=== PATIENT | male | born 1970 | race Caucasian/White ===

== ENCOUNTER 2017-04-09 10:06 | Inpatient (IN) ==
[2017-04-09] MEDS ORDERED: Thiamine (B-1) 100 MG, Folic Acid 1 MG, MVI, adult with vitamin K 10 ML in 0.9 % Sodi... IVPB ONE (10:32)
[2017-04-09] MEDS ORDERED: 0.9 % Sodium Chloride 1,000 ML IVC ONE ×2 (10:33→16:13)
[2017-04-09 11:03] LABS: Basophils # 0.1 K/mcL (0.0-0.2); Basophils % 0.4 %; Eosinophils % 0.1 %; Hematocrit 38.8 % (37.5-50.1); Hemoglobin 11.5 g/dL (12.9-16.9); Immature Granulocytes % 0.4 % (0-4); Lymphocytes # 1.1 K/mcL (0.6-4.6); Lymphocytes % 7.7 %; Mean Corpuscular HGB Conc 29.6 g/dL (31.6-35.5); Mean Corpuscular Hemoglobin 20.2 pg (28.0-33.3); Mean Corpuscular Volume 68.2 fL (83.0-100.0); Mean Platelet Volume 9.4 fL (9.4-12.4); Monocytes # 0.9 K/mcL (0.0-1.3); Monocytes % 6.3 %; Neutrophils # 11.7 K/mcL (1.6-8.9); Platelet Count 319 K/mcL (140-400); Red Blood Count 5.69 M/mcL (4.19-5.50); Red Cell Distribution Width 23.6 % (11.5-14.5); Segmented Neutrophils % 85.1 %
[2017-04-09 11:11] LABS: INR 1.1; Prothrombin Time 11.7 Seconds (9.4-12.1)
[2017-04-09 11:19] LABS: Toxic Granulation Present (Not Present)
[2017-04-09 11:20] LABS: Alanine Aminotransferase 15 Units/L (0-55); Albumin 3.6 g/dL (3.5-5.0); Albumin/Globulin Ratio 0.7 (1.1-2.2); Alkaline Phosphatase 98 Units/L (38-126); Anisocytosis 1+ (Not Present); Aspartate Amino Transferase 24 Units/L (5-34); BUN/Creatinine Ratio 4 (6-26); Bilirubin,Total 0.4 mg/dL (0.2-1.2); Carbon Dioxide 16 mEq/L (19-29); Chloride 96 mEq/L (98-109); Ethanol 73 mg/dL (0-10); Globulin 5.1 g/dL (2.4-3.5); Glucose 125 mg/dL (70-99); Lipase 41 Units/L (8-78); Magnesium 1.6 mg/dL (1.6-2.6); Microcytosis Present (Not Present); Osmolality,Calculated 276 (280-300); Platelet Estimate Normal (Normal); Potassium 3.3 mEq/L (3.5-4.5); Sodium 134 mEq/L (136-145); Total Protein 8.7 g/dL (6.0-8.3); eGFR For African Americans > 60 (> 60); eGFR For Non-African Americans > 60 (> 60)
[2017-04-09 11:27] LABS: Blood Urea Nitrogen 3 mg/dL (8-26)
--- NOTE | 2017-04-09 11:30 | Emergency Department Note ---
Disposition Clinical Impression: Urinary retention, Chronic alcohol abuse, Cavitary lesion of lung, Dehydration , Tachycardia Pneumonia Qualifiers: Pneumonia type: due to unspecified organism Laterality: right Lung location: upper lobe of lung Qualified Code(s): J18.1 - Lobar pneumonia, unspecified organism Diarrhea Qualifiers: Diarrhea type: unspecified type Qualified Code(s): R19.7 - Diarrhea, unspecified Syncope Qualifiers: Syncope type: unspecified Qualified Code(s): R55 - Syncope and collapse Disposition: Admitted As Inpatient Condition: Fair Time of Disposition: 15:43 General Adult HPI - General Chief complaint: ED Urogenital-Male Stated complaint: DIFFICULTY URINATING Dizziness Time Seen by Provider: 04/09/17 10:10 Source: patient, EMS Mode of arrival: EMS Limitations: no limitations Nursing Notes Reviewed: Yes Vital Signs Reviewed: Yes - History of Present Illness HPI Narrative: 46-year-old male who is a chronic alcoholic comes to the ED complaining that he is unable to urinate. He said he also had one episode where he passed out when he was trying to urinate. So did not hit his head. Patient states he drinks 3- 6 tall boy beers every day. He stated he last drank last night. He states that he did fall while he is tried to urinate. He has never had this urinating problem before. He said he fell backwards but did not his head he states he thinks he lost consciousness before he fell and woke up on the ground. Patient is an unreliable historian at this time due to there is a good chance he still has alcohol on board. Patient otherwise is only having pain in the thoracolumbar region of his spine. He says he is unable to urinate and is able to pass gas and having bowel movements. He said this difficulty in urinating started this morning. He fell while trying to urinate so the fall occurred after the trouble with urination. Patient otherwise is having no complaints including headache, blurry vision, neck pain, chest pain, shortness of breath, abdominal pain, pain or tingling in any arms or legs or any generalized numbness , change in gait, fevers, nausea or vomiting. Pain Scale: 8 - Related Data Home Medications Medication Instructions Recorded Confirmed Benztropine [Cogentin] 1 mg PO HS 01/22/17 04/09/17 Gabapentin [Neurontin] 600 mg PO QID 01/22/17 04/09/17 Lurasidone HCl [Latuda] 120 mg PO DAILY 01/22/17 04/09/17 Trazodone HCl 350 mg PO HS 01/22/17 04/09/17 Venlafaxine XR (24 HR) [Effexor Xr] 150 mg PO DAILY 01/22/17 04/09/17 risperiDONE [Risperdal] 2 mg PO BID 01/22/17 04/09/17 Cholecalciferol (D-3) [Vitamin D] 2,000 unit PO DAILY 04/09/17 04/09/17 Iron Polysaccharide Complex [Pro 180 mg PO BID 04/09/17 04/09/17 Fe] Allergies Allergy/AdvReac Type Severity Reaction Status Date / Time propoxyphene Allergy Rash Verified 01/22/17 10:38 [From Anai] Review of Systems: 10 point review of systems done and negative unless otherwise stated in history of present illness. All systems ED: reviewed and negative except as stated. Review of Systems: As Per [facility] Past Medical History - Past Medical History Attestation: Yes The following information was validated with the patient. Medical history: Reports: hypertension, other Surgical history: Reports: other Psychiatric history: Reports: bipolar, depression, schizophrenia - Social History Smoking Status: Current every day smoker Smokeless Tobacco Status: No Alcohol use: Reports: occasionally Drug use: Reports: none, marijuana, methamphetamine Physical Exam - General Limitations: no limitations General appearance: alert, anxious - Head Head exam: atraumatic, normocephalic, normal inspection - Eye Eye exam: Present: normal appearance, PERRL, EOMI - ENT ENT exam: normal exam, normal oropharynx, mucous membranes moist - Neck Neck exam: Present: normal inspection, full ROM, trachea midline. Absent: tenderness - Chest Chest inspection: Present: normal inspection, symmetric chest wall rise. Absent : tenderness - Respiratory Respiratory exam: Present: normal lung sounds bilaterally. Absent: respiratory distress, wheezes, accessory muscle use - Cardiovascular Cardiovascular exam: Present: regular rate, normal rhythm, normal heart sounds - Abdominal Exam Abdominal exam: Present: soft, Non-Tender. Absent: tenderness, distention, guarding, rebound, rigidity - Extremities Exam Extremities exam: Present: normal inspection, full ROM. Absent: tenderness, pedal edema - Expanded Lower Extremity Exam Neurovascular/Tendon exam: Present: normal capillary refill. Absent: pulse deficit, motor deficit, sensory deficit, tendon deficit - Back Exam Back exam: Present: normal inspection, full ROM, tenderness (Midline tenderness from T10-L2. No signs of bruising there is paraspinal muscle tenderness as well in that region.), paraspinal tenderness. Absent: CVA tenderness (R), CVA tenderness (L) - Neurological Exam Neurological exam: Present: alert, oriented X3, CN II-XII intact, normal gait. Absent: motor sensory deficit - Expanded Neurological Exam Patient oriented to: Present: person, place, time Speech: Present: fluid speech Cranial nerves: EOM function (II, III, IV, ): Normal, facial sensation (V): Normal, facial palsy (VII): Normal, spinal accessory function (XI): Normal, tongue deviation (XII): Normal Cerebellar function: finger to nose: Normal, heel to agarwal: Normal Cerebellar function: normal gait Motor strength - LUE: 5/5 Motor strength - RUE: 5/5 Motor strength - LLE: 5/5 Motor strength - RLE: 5/5 Upper motor neuron exam: alvarez neglect: Absent bilaterally, pronator drift: Absent bilaterally Sensory exam upper extremity: light touch: Normal Sensory exam lower extremity: light touch: Normal Coma Scale Eye Opening: Spontaneous Coma Scale Motor Response: Obeys Commands Coma Scale Verbal Response: Oriented Coma Scale Total: 15 - Skin Skin exam: Present: warm, dry, intact, normal color Course Course Narrative: 46-year-old male who is a chronic alcoholic presents the ED with difficulty with urination. Patient did try to urinate for us she was unable to use will place a catheter in him and drain it. To see if we can get any urine out we will Also get a urinalysis. Due to the fall we will get an EKG as well as basic labs including CMP, EtOH, urine drug screen, mag, hepatic panel, lipase as well as coags. We will also get CT of his head neck place him in a c-collar as well as thoracic and lumbar spine. We will see a chest x-ray. - Reevaluation(s) Reevaluation #1: Patient reevaluated CT of head and neck came back not showing any acute fractures were head bleedings did take the c-collar off and he has no cervical neck tenderness. CT did show possible cavitary lesion patient will get CT of chest with contrast for possible neoplasm. Patient notified of this. He did have a Hyatt placed which was able to drain the urine. Patient is still having the diarrhea. Otherwise he is having no complaints at this time. Will place patient on droplet precautions due to possible tuberculosis. Time: 12:27 Vital Signs Temperature 98 F 04/09/17 10:16 Pulse Rate 143 04/09/17 10:16 Respiratory Rate 20 04/09/17 10:16 Blood Pressure 144/71 04/09/17 10:16 O2 Sat by Pulse Oximetry 95 04/09/17 10:16 Temperature 98.4 F 04/09/17 18:55 Pulse Rate 108 04/09/17 17:03 Respiratory Rate 20 04/09/17 18:55 Blood Pressure 143/76 04/09/17 18:55 O2 Sat by Pulse Oximetry 98 04/09/17 17:03 Oxygen Delivery Oxygen Delivery Room Air Medical Decision Making - MDM Narrative Medical decision making narrative: 46-year-old male presents to the ED complaining of urinary retention and generalized weakness. Patient has never had this issue of urinary retention before. He said he did not pass out. Due to being a chronic alcoholic and possibly still altered with alcohol the did get a CT of his head and neck due to the fall and placed him in c-collar. This came back negative and the c- collar was taken off as he had no cervical tenderness. He also is having thoracolumbar pain so we got a CT of both those and there was incidental finding of possible cavitary lesion in the thoracic cavity so CT of chest with contrast was ordered as it was recommended by radiology. Results of this have not came back most likely patient has to be admitted for further evaluation of this cavitary lesion. We also placed a Hyatt catheter in him due to urinary retention he had 500 mL of urine voided. Patient has never had this issue before. He has had chronic diarrhea and is still in having it while here. We did give him a banana bag as well as IV fluid which did help him feel better. 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 Spoke with the hospitalist Dr. Oconnell who agreed to admit the patient to their service for further evaluation. Patient is admitted stable condition. Cervical Spine CT 04/09/17 10:28 IMPRESSION: 1. Limited exam due to patient motion. Within that limitation, there is no acute fracture of the cervical spine evident. 2. Indeterminate mixed solid and cavitary lesion within the right upper lobe, incompletely imaged. A CT of the chest with contrast is recommended for further evaluation of this finding is a neoplastic process could have this appearance. D/ / Thom Bermudez MD / Thom Bermudez MD Interpreting Provider: Thom Bermudez MD Chest X-Ray 04/09/17 10:28 IMPRESSION: Negative chest. D/ / Sadaf Vizcarra MD / Sadaf Vizcarra MD Interpreting Provider: Sadaf Vizcarra MD Head CT 04/09/17 10:28 IMPRESSION: 1. No acute intracranial abnormality 2. Mild diffuse atrophic changes D/ / Jameson Canela MD / Jameson Canela MD Interpreting Provider: Jameson Canela MD Lumbar Spine CT 04/09/17 10:31 IMPRESSION: No evidence for acute fracture or malalignment of the thoracolumbar spine. Ill-defined right apical lung nodule with internal calcification, however there is a significant soft tissue component. Comparison with previous studies, if available, would be helpful. Otherwise CT of the chest is recommended for further evaluation which can be performed on a nonemergent/outpatient basis. D/ / Joni Ghosh MD / Joni Ghosh MD Interpreting Provider: Joni Ghosh MD Thoracic Spine CT 04/09/17 10:31 IMPRESSION: No evidence for acute fracture or malalignment of the thoracolumbar spine. Ill-defined right apical lung nodule with internal calcification, however there is a significant soft tissue component. Comparison with previous studies, if available, would be helpful. Otherwise CT of the chest is recommended for further evaluation which can be performed on a nonemergent/outpatient basis. D/ / Joni Ghosh MD / Joni Ghosh MD Interpreting Provider: Joni Ghosh MD Chest CT 04/09/17 12:25 IMPRESSION: The process of the right upper lobe may be due to an infectious process including histoplasmosis, malignancy, or less likely both processes adjacent to each other. An infectious process would be favored but close follow-up is needed to exclude malignancy. Recommend pulmonology consultation. This could be further evaluated with a short-term follow-up CT of the chest, PET-CT, or biopsy. D/ / Lamont Cortez MD / Lamont Cortez MD Interpreting Provider: Lamont Cortez MD - Medical Records Medical records reviewed: Yes I reviewed the patient's medical records. - Lab Data Lab results reviewed: Yes I reviewed the patient's lab results. Result diagrams: 04/09/17 10:20 04/09/17 10:20 Lab Results 04/09/17 04/09/17 04/09/17 Range/Units 10:20 10:20 10:20 WBC 13.7 H (4.3-11.1) K/mcL RBC 5.69 H (4.19-5.50) M/mcL Hgb 11.5 L (12.9-16.9) g/dL Hct 38.8 (37.5-50.1) % MCV 68.2 L (83.0-100.0) fL MCH 20.2 L (28.0-33.3) pg MCHC 29.6 L (31.6-35.5) g/dL RDW 23.6 H (11.5-14.5) % Plt Count 319 (140-400) K/mcL MPV 9.4 (9.4-12.4) fL Immature Gran % 0.4 (0-4) % Seg Neutrophils % 85.1 % Lymphocytes % 7.7 % Monocytes % 6.3 % Eosinophils % 0.1 % Basophils % 0.4 % Neutrophils # 11.7 H (1.6-8.9) K/mcL Lymphocytes # 1.1 (0.6-4.6) K/mcL Monocytes # 0.9 (0.0-1.3) K/mcL Eosinophils # 0.0 (0.0-0.6) K/mcL Basophils # 0.1 (0.0-0.2) K/mcL Toxic Granulation Present A (Not Present) Platelet Estimate Normal (Normal) Anisocytosis 1+ A (Not Present) Microcytosis Present A (Not Present) PT 11.7 (9.4-12.1) Seconds INR 1.1 APTT 26.0 (26.0-36.0) Seconds Sodium 134 L (136-145) mEq/L Potassium 3.3 L (3.5-4.5) mEq/L Chloride 96 L (98-109) mEq/L Carbon Dioxide 16 L (19-29) mEq/L BUN 3 L (8-26) mg/dL Creatinine 0.82 (0.72-1.25) mg/dL Est GFR ( Amer) > 60 (> 60) Est GFR (Non-Af Amer) > 60 (> 60) BUN/Creatinine Ratio 4 L (6-26) Glucose 125 H (70-99) mg/dL Calculated Osmolality 276 L (280-300) Lactic Acid (0.5-2.2) mmol/L Calcium 9.0 (8.6-10.8) mg/dL Magnesium 1.6 (1.6-2.6) mg/dL Total Bilirubin 0.4 (0.2-1.2) mg/dL AST 24 (5-34) Units/L ALT 15 (0-55) Units/L Alkaline Phosphatase 98 (38-126) Units/L Creatine Kinase 388 H (30-200) Units/L Serum Total Protein 8.7 H (6.0-8.3) g/dL Albumin 3.6 (3.5-5.0) g/dL Globulin 5.1 H (2.4-3.5) g/dL Albumin/Globulin Ratio 0.7 L (1.1-2.2) Lipase 41 (8-78) Units/L TSH (0.350-4.840) mcIU/mL Urine Color (Yellow) Urine Clarity (Clear) Urine pH (5.0-8.0) pH Units Ur Specific [place] (1.010-1.025) Urine Protein (Neg-Trace) mg/dL Urine Glucose (UA) (Normal) mg/dL Urine Ketones (Negative) mg/dL Urine Blood (Negative) Urine Nitrite (Negative) Urine Bilirubin (Negative) Urine Urobilinogen (Normal) mg/dL Ur Leukocyte Esterase (Negative) Hyaline Casts Ur Culture Indicated? (NO) Urine Opiates Screen (Jsurnu=105) ng/mL Ur Barbiturates Screen (Drtfga=755) ng/mL Ur Phencyclidine Scrn (Cutoff=25) ng/mL Ur Amphetamines Screen (Dqxgmr=7213) ng/mL U Benzodiazepines Scrn (Axmfxj=852) ng/mL Urine Cocaine Screen (Cutoff= 300) ng/mL U Marijuana (THC) Screen (Cutoff = 50) ng/mL Ethyl Alcohol 73 H (0-10) mg/dL HIV Ag/Ab Combo Qual (Nonreactive) 04/09/17 04/09/17 04/09/17 Range/Units 11:34 11:34 16:50 WBC (4.3-11.1) K/mcL RBC (4.19-5.50) M/mcL Hgb (12.9-16.9) g/dL Hct (37.5-50.1) % MCV (83.0-100.0) fL MCH (28.0-33.3) pg MCHC (31.6-35.5) g/dL RDW (11.5-14.5) % Plt Count (140-400) K/mcL MPV (9.4-12.4) fL Immature Gran % (0-4) % Seg Neutrophils % % Lymphocytes % % Monocytes % % Eosinophils % % Basophils % % Neutrophils # (1.6-8.9) K/mcL Lymphocytes # (0.6-4.6) K/mcL Monocytes # (0.0-1.3) K/mcL Eosinophils # (0.0-0.6) K/mcL Basophils # (0.0-0.2) K/mcL Toxic Granulation (Not Present) Platelet Estimate (Normal) Anisocytosis (Not Present) Microcytosis (Not Present) PT (9.4-12.1) Seconds INR APTT (26.0-36.0) Seconds Sodium (136-145) mEq/L Potassium (3.5-4.5) mEq/L Chloride (98-109) mEq/L Carbon Dioxide (19-29) mEq/L BUN (8-26) mg/dL Creatinine (0.72-1.25) mg/dL Est GFR ( Amer) (> 60) Est GFR (Non-Af Amer) (> 60) BUN/Creatinine Ratio (6-26) Glucose (70-99) mg/dL Calculated Osmolality (280-300) Lactic Acid 5.3 H* (0.5-2.2) mmol/L Calcium (8.6-10.8) mg/dL Magnesium (1.6-2.6) mg/dL Total Bilirubin (0.2-1.2) mg/dL AST (5-34) Units/L ALT (0-55) Units/L Alkaline Phosphatase (38-126) Units/L Creatine Kinase (30-200) Units/L Serum Total Protein (6.0-8.3) g/dL Albumin (3.5-5.0) g/dL Globulin (2.4-3.5) g/dL Albumin/Globulin Ratio (1.1-2.2) Lipase (8-78) Units/L TSH (0.350-4.840) mcIU/mL Urine Color Yellow (Yellow) Urine Clarity Clear (Clear) Urine pH 6.0 (5.0-8.0) pH Units Ur Specific [place] 1.013 (1.010-1.025) Urine Protein Negative (Neg-Trace) mg/dL Urine Glucose (UA) Normal (Normal) mg/dL Urine Ketones Negative (Negative) mg/dL Urine Blood Negative (Negative) Urine Nitrite Negative (Negative) Urine Bilirubin Negative (Negative) Urine Urobilinogen Normal (Normal) mg/dL Ur Leukocyte Esterase Negative (Negative) Hyaline Casts GUEST RELATIONS AGENT Ur Culture Indicated? NO (NO) Urine Opiates Screen Negative (Wjvqsx=196) ng/mL Ur Barbiturates Screen Negative (Rreqyq=283) ng/mL Ur Phencyclidine Scrn Negative (Cutoff=25) ng/mL Ur Amphetamines Screen Negative (Dveihe=7470) ng/mL U Benzodiazepines Scrn Negative (Ocfmau=893) ng/mL Urine Cocaine Screen Negative (Cutoff= 300) ng/mL U Marijuana (THC) Screen Positive H (Cutoff = 50) ng/mL Ethyl Alcohol (0-10) mg/dL HIV Ag/Ab Combo Qual (Nonreactive) 04/09/17 04/09/17 Range/Units 16:50 16:50 WBC (4.3-11.1) K/mcL RBC (4.19-5.50) M/mcL Hgb (12.9-16.9) g/dL Hct (37.5-50.1) % MCV (83.0-100.0) fL MCH (28.0-33.3) pg MCHC (31.6-35.5) g/dL RDW (11.5-14.5) % Plt Count (140-400) K/mcL MPV (9.4-12.4) fL Immature Gran % (0-4) % Seg Neutrophils % % Lymphocytes % % Monocytes % % Eosinophils % % Basophils % % Neutrophils # (1.6-8.9) K/mcL Lymphocytes # (0.6-4.6) K/mcL Monocytes # (0.0-1.3) K/mcL Eosinophils # (0.0-0.6) K/mcL Basophils # (0.0-0.2) K/mcL Toxic Granulation (Not Present) Platelet Estimate (Normal) Anisocytosis (Not Present) Microcytosis (Not Present) PT (9.4-12.1) Seconds INR APTT (26.0-36.0) Seconds Sodium (136-145) mEq/L Potassium (3.5-4.5) mEq/L Chloride (98-109) mEq/L Carbon Dioxide (19-29) mEq/L BUN (8-26) mg/dL Creatinine (0.72-1.25) mg/dL Est GFR ( Amer) (> 60) Est GFR (Non-Af Amer) (> 60) BUN/Creatinine Ratio (6-26) Glucose (70-99) mg/dL Calculated Osmolality (280-300) Lactic Acid (0.5-2.2) mmol/L Calcium (8.6-10.8) mg/dL Magnesium (1.6-2.6) mg/dL Total Bilirubin (0.2-1.2) mg/dL AST (5-34) Units/L ALT (0-55) Units/L Alkaline Phosphatase (38-126) Units/L Creatine Kinase (30-200) Units/L Serum Total Protein (6.0-8.3) g/dL Albumin (3.5-5.0) g/dL Globulin (2.4-3.5) g/dL Albumin/Globulin Ratio (1.1-2.2) Lipase (8-78) Units/L TSH 1.475 (0.350-4.840) mcIU/mL Urine Color (Yellow) Urine Clarity (Clear) Urine pH (5.0-8.0) pH Units Ur Specific [place] (1.010-1.025) Urine Protein (Neg-Trace) mg/dL Urine Glucose (UA) (Normal) mg/dL Urine Ketones (Negative) mg/dL Urine Blood (Negative) Urine Nitrite (Negative) Urine Bilirubin (Negative) Urine Urobilinogen (Normal) mg/dL Ur Leukocyte Esterase (Negative) Hyaline Casts Ur Culture Indicated? (NO) Urine Opiates Screen (Oxfphn=956) ng/mL Ur Barbiturates Screen (Sytspj=477) ng/mL Ur Phencyclidine Scrn (Cutoff=25) ng/mL Ur Amphetamines Screen (Erpkvj=7078) ng/mL U Benzodiazepines Scrn (Mukcqm=323) ng/mL Urine Cocaine Screen (Cutoff= 300) ng/mL U Marijuana (THC) Screen (Cutoff = 50) ng/mL Ethyl Alcohol (0-10) mg/dL HIV Ag/Ab Combo Qual Nonreactive (Nonreactive) - Radiology Data Radiology results reviewed: Yes I reviewed the patient's radiology results. - EKG Data EKG #1 EKG attestation: Yes I reviewed and interpreted this EKG. EKG results narrative: EKG done at 1044 reviewed myself and the attending shows sinus tachycardia at a rate of 134, MA interval 143, QRS 77, QTC 403 with a normal axis. No signs of any ST elevation, T-wave abnormalities, heart strain or hypertrophy, heart block , WPW/Brugada syndrome. This EKG is unchanged when compared with old EKG done . Attestation Statement - Attestation Attestation: I examined this patient and my medical decision-making was reviewed with the Resident Physician, Dr. Corley. I agree with the documented findings, disposition and treatment plan as described except to the extent set forth below. Patient is a 46-year-old white male with a history of chronic alcohol abuse who presents to the emergency Department today with complaints of suprapubic pain and urinary retention and is quite tachycardic on arrival and appears uncomfortable. Patient reports that in attempts to try to urinate at home he had a syncopal episode. Patient denies any injury related to this incident. Patient denies any chest pain or palpitations headache or any symptoms preceding the syncope outside of the urinary symptoms. Patient's denying any symptoms at this time besides the urinary problems. Patient was placed on a media monitor continuous pulse ox IV saline well-established EKG was obtained and labs were drawn and sent and a Hyatt catheter was placed and which the patient had approximately 200 mL of urine out indicating some retention. Patient with significant relief following Hyatt catheter placement. I agree patient's physical exam findings as documented. He should with a sinus tachycardia on arrival but stable blood pressure. Patient received IV fluid boluses as well as a banana bag on arrival. Both plain film and CT imaging was negative for any acute abnormality or injury. Chest x-ray was unremarkable. It was noted on the CT cervical spine that there was visualization of the upper lobe cavitary lesion in the lung that was recommended we get further evaluation on. This was not seen on the regular chest x-ray. Due to this we pretreated the patient with Benadryl and sent him for CT of the chest with contrast. The CT showed a cavitary lesion pneumonia versus malignancy versus TB or histoplasmosis. We are still waiting for the patient's lactate at this time but will initiate IV antibiotics for the pneumonia. Patient's heart rate has improved significantly with IV fluids in the banana bag. We went ahead and discussed the case with the hospitalist who agreed with admission and ongoing management of his cavitary lesion. Patient has a Hyatt in place for his urinary retention urinalysis was unremarkable for any infection.
[2017-04-09 11:48] LABS: Bilirubin,Urine Negative (Negative); Blood,Urine Negative (Negative); Color,Urine Yellow (Yellow); Glucose,Urine (UA) Normal (Normal); Ketones,Urine Negative (Negative); Leukocyte Esterase,Urine Negative (Negative); Nitrite,Urine Negative (Negative); Protein,Urine Negative (Neg-Trace); Specific Gravity,Urine 1.013 (1.010-1.025); Urobilinogen,Urine Normal (Normal)
[2017-04-09 11:51] LABS: Amphetamine Screen,Urine Negative ng/mL (Cutoff=1000); Barbiturate Screen,Urine Negative ng/mL (Cutoff=200); Benzodiazepines Screen,Urine Negative ng/mL (Cutoff=200); Cannabinoid Screen,Urine Positive ng/mL (Cutoff = 50); Cocaine Screen,Urine Negative ng/mL (Cutoff= 300); Opiate Screen,Urine Negative ng/mL (Cutoff=300); Phencyclidine Screen,Urine Negative ng/mL (Cutoff=25)
[2017-04-09 11:58] LABS: Clarity,Urine Clear (Clear)
[2017-04-09 13:07] LABS: Creatine Kinase 388 Units/L (30-200)
[2017-04-09] MEDS ORDERED: Naloxone 0.4 MG/ML INJ IVP PRN (16:09)
--- NOTE | 2017-04-09 17:05 | Internal Med History&Physical ---
Date of Encounter: 04/10/17 Time of Encounter: 16:00 Assessment and Plan (1) Cavitary lesion of lung Current visit: Yes Status: Acute Etiology is unclear. Possibly infectious as he has a white count and tachycardia. Will c/s pulmonary. will check sputum AFP x3. Will send for Qunatiferon gold. check for histoplasmosis. check HIV (2) Pneumonia Current visit: Yes Status: Acute Will check blood cultures. check lactic acid. Check sputum culture. Need to rule out TB as above. Not sure what his risk factors are for now other than alcoholism. urine strep/legionella. start vanco/zosyn. continue with IVF. Bolus 1 L NS now. He is status post 1 L in ED Qualifiers: Pneumonia type: due to unspecified organism Laterality: right Lung location: upper lobe of lung Qualified Code(s): J18.1 - Lobar pneumonia, unspecified organism (3) Syncope and collapse Current visit: Yes Status: Acute Sounds to be vasovagal. Patient is not best historian currently as he seems to still be intoxicated. CT head negative. Will order echo. keep on tele. check TSH. (4) Urinary retention Current visit: Yes Status: Acute Hyatt has been placed. Not sure exact etiology but he is taking cogentin from what is listed in EMR which can cause this. Urine seems to be clean. Will remove Hyatt in am and do voiding trials. If still unable to urinate, will check a CT pelvis and may start flomax. Possibly will need urology evaluation. (5) Chronic alcohol abuse Current visit: Yes Status: Acute Started banana bag. Will add CIWA protocol. (6) DVT prophylaxis Current visit: Yes Status: Acute heparin SQ (7) Diarrhea Current visit: Yes Status: Acute check stools for C. Diff, check for ova/parasites. Qualifiers: Diarrhea type: unspecified type Qualified Code(s): R19.7 - Diarrhea, unspecified Internal Medicine - H&P: HPI Chief complaint: urinary retention Admitted From: Home Plans for Post Hospital Care: at Home History of present illness: Mr. Guzman is a 46 year old male who has a history of alcohol abuse as well as psychiatric disorders who presented initially to the hospital intoxicated state and was complaining of urinary retention. Please note that the history was obtained mostly from the medical records and talking to the nursing staff as well as the ED staff as the patient is in somewhat of an intoxicated state and is not the best historian at the moment. The patient initially presented with complaints of passing out while trying to urinate when he was not able to. He presented to the emergency department in a mostly altered state and he underwent this workup that included basic laboratory workup as well as multiple scans looking for trauma. He had a CT abdomen was negative. Also underwent multiple CT's cervical spine as well as thoracic and lumbar spine which were negative, however an incidental finding of a right upper lung field mass versus cavitary lesion was found for which a CT of the chest was done. There is also calcification and some hilar lymphadenopathy noted as well. The patient as far as I know has not had any fever chills nausea vomiting chest pain shortness of breath abdominal pain or neurological symptoms. His main concern was urinary symptoms. He has been having loose stools over the last few days I am not exactly sure how long he has been having those however he had signs of swelling his pants while he was in the room with him. His work up in the ED also showed elevated white count and metabolic acidosis. He had somewhat of an elevated creatine kinase and hypokalemia. The patient is being admitted to the hospitalist service for pneumonia and ruling out TB as he does have a cavitary lesion on his lung images. Past Med Surg Social Fam HX - Past Medical History Medical history: other (alcohol abuse) Psychiatric history: bipolar, depression, schizophrenia - Past Surgical History Surgical History: other - Social History Smoking Status: Current every day smoker Smokeless Tobacco Status: No Alcohol use: heavy Drug use: none, marijuana, methamphetamine - Family History Father Living Status: Still Living Mother Living Status: Still Living Internal Medicine - H&P: Meds Benztropine [Cogentin] 1 mg PO HS 01/22/17 [History] Gabapentin [Neurontin] 600 mg PO QID 01/22/17 [History] Lurasidone HCl [Latuda] 120 mg PO DAILY 01/22/17 [History] Trazodone HCl 350 mg PO HS 01/22/17 [History] Venlafaxine XR (24 HR) [Effexor Xr] 150 mg PO DAILY 01/22/17 [History] risperiDONE [Risperdal] 2 mg PO BID 01/22/17 [History] Cholecalciferol (D-3) [Vitamin D] 2,000 unit PO DAILY 04/09/17 [History] Iron Polysaccharide Complex [Pro Fe] 180 mg PO BID 04/09/17 [History] 3 Allergy/AdvReac Type Severity Reaction Status Date / Time propoxyphene Allergy Rash Verified 01/22/17 10:38 [From Eliot-N] All Systems PM: A 10-system review of systems was performed and is negative for pertinent findings except as documented above in the HPI. Review of systems: All systems reviewed are negative except as mentioned in history of present illness - Constitutional Vitals: Temp Pulse Resp BP Pulse Ox 98 F 128 20 151/76 99 04/09/17 10:16 04/09/17 14:18 04/09/17 14:18 04/09/17 14:18 04/09/17 14:18 Exam: GEN: NAD, lethargic HEENT: AT, NC, No cyanosis, oral mucosa is moist, No JVD Lymphatics: No lymphadenoapthy Eyes: Extrocular muscles intact, anicteric CVS:RRR. S1, S2, No m/r/g RESP: CTAB ABD: Soft, NT, ND, +BS EXT: No edema, No rashes, 2+ DP. multiple Tattoos noted NEURO: Incoherent. Nonfocal, CN II-XII intact, No focal motor or sensory deficits Psych: Intoxicated. Not very cooperativ. Anxious. Internal Med - H&P Results - Labs CBC & Chem 7: 04/10/17 05:44 04/10/17 05:44 Labs: Short CBC 04/09/17 Range/Units 10:20 WBC 13.7 H (4.3-11.1) K/mcL Hgb 11.5 L (12.9-16.9) g/dL Hct 38.8 (37.5-50.1) % Plt Count 319 (140-400) K/mcL Neutrophils # 11.7 H (1.6-8.9) K/mcL BMP 04/09/17 10:20 Sodium 134 L Potassium 3.3 L Chloride 96 L Carbon Dioxide 16 L BUN 3 L Creatinine 0.82 Glucose 125 H Calcium 9.0 Liver Function 04/09/17 Range/Units 10:20 Total Bilirubin 0.4 (0.2-1.2) mg/dL AST 24 (5-34) Units/L ALT 15 (0-55) Units/L Alkaline Phosphatase 98 (38-126) Units/L Albumin 3.6 (3.5-5.0) g/dL Urine 04/09/17 Range/Units 11:34 Urine Color Yellow (Yellow) Urine Clarity Clear (Clear) Urine pH 6.0 (5.0-8.0) pH Units Ur Specific [place] 1.013 (1.010-1.025) Urine Protein Negative (Neg-Trace) mg/dL Urine Glucose (UA) Normal (Normal) mg/dL - Impressions ITS Impressions Cervical Spine CT 04/09/17 10:28 IMPRESSION: 1. Limited exam due to patient motion. Within that limitation, there is no acute fracture of the cervical spine evident. 2. Indeterminate mixed solid and cavitary lesion within the right upper lobe, incompletely imaged. A CT of the chest with contrast is recommended for further evaluation of this finding is a neoplastic process could have this appearance. D/ / Thom Bermudez MD / Thom Bermudez MD Interpreting Provider: Thom Bermudez MD Chest X-Ray 04/09/17 10:28 IMPRESSION: Negative chest. D/ / Sadaf Vizcarra MD / Sadaf Vizcarra MD Interpreting Provider: Sadaf Vizcarra MD Head CT 04/09/17 10:28 IMPRESSION: 1. No acute intracranial abnormality 2. Mild diffuse atrophic changes D/ / Jameson Canela MD / Jameson Canela MD Interpreting Provider: Jameson Canela MD Lumbar Spine CT 04/09/17 10:31 IMPRESSION: No evidence for acute fracture or malalignment of the thoracolumbar spine. Ill-defined right apical lung nodule with internal calcification, however there is a significant soft tissue component. Comparison with previous studies, if available, would be helpful. Otherwise CT of the chest is recommended for further evaluation which can be performed on a nonemergent/outpatient basis. D/ / Joni Ghosh MD / Joni Ghosh MD Interpreting Provider: Joni Ghosh MD Thoracic Spine CT 04/09/17 10:31 IMPRESSION: No evidence for acute fracture or malalignment of the thoracolumbar spine. Ill-defined right apical lung nodule with internal calcification, however there is a significant soft tissue component. Comparison with previous studies, if available, would be helpful. Otherwise CT of the chest is recommended for further evaluation which can be performed on a nonemergent/outpatient basis. D/ / Joni Ghosh MD / Joni Ghosh MD Interpreting Provider: Joni Ghosh MD Chest CT 04/09/17 12:25 IMPRESSION: The process of the right upper lobe may be due to an infectious process including histoplasmosis, malignancy, or less likely both processes adjacent to each other. An infectious process would be favored but close follow-up is needed to exclude malignancy. Recommend pulmonology consultation. This could be further evaluated with a short-term follow-up CT of the chest, PET-CT, or biopsy. D/ / Lamont Cortez MD / Lamont Cortez MD Interpreting Provider: Lamont Cortez MD
[2017-04-09] MEDS ORDERED: *HR* LORazepam 2 MG/ML VIAL IVP PRN ×3 (17:17)
[2017-04-09] MEDS: Thiamine (B-1) 100 MG, Folic Acid 1 MG, MVI, adult with vitamin K 10 ML in 0.9 % Sodi... IVPB SCH (19:11)
[2017-04-09] MEDS: Cholecalciferol (D-3) 1,000 UNIT TABLET PO SCH (21:27)
[2017-04-09] MEDS: 0.9 % Sodium Chloride 1,000 ML IVC SCH (21:28)
[2017-04-09] MEDS: traZODone 50 MG TABLET PO SCH (21:39)
[2017-04-09] MEDS: risperiDONE 1 MG TABLET PO SCH (21:41)
[2017-04-09] MEDS: Gabapentin 300 MG CAPSULE PO SCH (21:41)
[2017-04-09] MEDS: Iron Polysaccharide Complex 150 MG CAPSULE PO SCH (21:43)
[2017-04-09] MEDS: Vancomycin 1,250 MG in D5% in Water 250 ML IVPB SCH (21:44)
[2017-04-10] MEDS: *HR* Heparin 5,000 UNIT/ML VIAL SQ SCH ×3 (00:40→15:14)
[2017-04-10 02:31] LABS: Adenovirus F 40/41 PCR Not detected (Not detect); Astrovirus PCR Not detected (Not detect); C.difficile Toxin A/B by PCR Not detected (Not detect); Campylobacter by PCR Not detected (Not detect); Cryptosporidium by PCR Not detected (Not detect); Cyclospora cayetanensis PCR Not detected (Not detect); E. coli O157 by PCR Not detected (Not detect); Entamoeba histolytica PCR Not detected (Not detect); Enteroaggregative E.coli(EAEC) Not detected (Not detect); Enteropathogenic E.coli(EPEC) Not detected (Not detect); Enterotoxigenic E.coli (ETEC) Not detected (Not detect); Giardia lamblia PCR Not detected (Not detect); Norovirus GI/GII PCR Not detected (Not detect); Plesiomonas shigelloides PCR Not detected (Not detect); Rotavirus A PCR Not detected (Not detect); Salmonella PCR Not detected (Not detect); Sapovirus PCR Not detected (Not detect); Shig/EnteroinvasiveE coli EIEC Not detected (Not detect); Shigalike tox-prod E coli STEC Not detected (Not detect); Vibrio PCR Not detected (Not detect); Vibrio cholerae PCR Not detected (Not detect); Yersinia enterocolitica PCR Not detected (Not detect)
[2017-04-10] MEDS: Piperacillin/Tazobactam 3.375 GM/200 ML BAG IVPB SCH ×3 (02:51→15:15)
[2017-04-10 06:12] LABS: Basophils % 0.3 %; Eosinophils # 0.1 K/mcL (0.0-0.6); Eosinophils % 0.8 %; Hematocrit 32.9 % (37.5-50.1); Immature Granulocytes % 0.3 % (0-4); Lymphocytes # 1.2 K/mcL (0.6-4.6); Mean Corpuscular HGB Conc 29.2 g/dL (31.6-35.5); Mean Corpuscular Hemoglobin 20.1 pg (28.0-33.3); Mean Platelet Volume 9.4 fL (9.4-12.4); Monocytes # 0.7 K/mcL (0.0-1.3); Monocytes % 11.1 %; Platelet Count 244 K/mcL (140-400); Red Blood Count 4.77 M/mcL (4.19-5.50); Red Cell Distribution Width 22.6 % (11.5-14.5); Segmented Neutrophils % 68.5 %
[2017-04-10 06:18] LABS: BUN/Creatinine Ratio 4 (6-26); Calcium 8.2 mg/dL (8.6-10.8); Carbon Dioxide 25 mEq/L (19-29); Chloride 107 mEq/L (98-109); Glucose 86 mg/dL (70-99); Osmolality,Calculated 284 (280-300); Potassium 3.9 mEq/L (3.5-4.5); Sodium 139 mEq/L (136-145); eGFR For African Americans > 60 (> 60); eGFR For Non-African Americans > 60 (> 60)
[2017-04-10 06:19] LABS: Blood Urea Nitrogen 3 mg/dL (8-26)
[2017-04-10 06:24] LABS: Hemoglobin 9.6 g/dL (12.9-16.9); Neutrophils # 4.5 K/mcL (1.6-8.9)
--- NOTE | 2017-04-10 06:31 | Pulmonology Consult Note ---
Date of Encounter: 04/10/17 Time of Encounter: 06:31 Assessment and Plan (1) Cavitary lesion of lung Current Visit: Yes Status: Acute In conclusion this is a 46-year-old gentleman with chronic ethanol and tobacco abuse who presented with syncope and urinary retention. He was grossly dehydrated on admission with evidence of possible sepsis with elevated lactate and treated broadly with antimicrobials. Incidentally a right upper lobe cavitary lesion with associated area of consolidation and calcification. From the standpoint cavitary lesion I think that it is less likely active tuberculosis based upon history however I am concerned about possible exposure the patient to his housemate who has been coughing up blood frequently. Clearly increase sthe pretest probability of this being active tuberculosis. She really could not exclude latent tuberculosis in this individual and so workup to evaluate for this would also be warranted. I suspect this is an infectious etiology although his smoking risk puts him at risk for primary lung carcinoma. Use of marijuana could also conceivably put him at increased risk for fungal infection such as histoplasmosis although I do feel that this is unlikely. Although there are certain rheumatological conditions that can cause cavitary lesions I did not feel that this is related to a systemic inflammatory condition or vasculitis. First step would be rule out active tuberculosis and then proceed with bronchoscopy for further evaluation of this lesion. This could happen over the next 24-48 hours depending on his clinical state with regards to ethanol withdrawal. I agree with broad-spectrum antimicrobials at present. A bronchoscopy is recommended. The procedure , risks, benefits, complications, and expected outcomes have been reviewed. Benefits of diagnosis, as well as risks to include bleeding, infection, pneumothorax which may require surgical intervention, and in a small population. The patient is aware that sometimes test is nondiagnostic. Discussed with patient and agrees to proceed. He presented with evidence of sepsis and lactic acidosis I suspect the latter was more related to dehydration and ethanol abuse as opposed to the severity of his underlying infection. Nevertheless recommend repeat lactate 2 establishes this is normalized. His making appropriate amount a urine now white count has normalized his been afebrile and no longer tachycardic all evidence that initial treatment has been effective. He has a significant history of tobacco abuse I suspect underlying chronic obstructive pulmonary disease. He denies any shortness of breath or wheezing present could institute a short acting beta agonist on an as-needed basis at current time. Was planned for outpatient workup. Recs: Agree with blood cultures and sputum culture. Legionella and strep pneumo if not already done Cont broad-spectrum antimicrobials and plan a de-escalate other extremity for 48 hours based upon clinical course Repeat Lactate Continue isolation precautions until AFB 2 have been obtained and are negative. I have requested respiratory therapy see the patient for induced sputum to facilitate this process Send QuantiFERON goal EtOH withdrawal per primary medicine service Keep nothing by mouth at midnight for possible bronchoscopy tomorrow I have sent off fungal serologies Thank you for this consultation pulmonary we will continue to follow (2) Lactic acidosis Current Visit: Yes Status: Acute (3) Tobacco abuse Current Visit: Yes Status: Acute (4) Pneumonia Current Visit: Yes Status: Acute Qualifiers: Pneumonia type: due to unspecified organism Laterality: right Lung location: upper lobe of lung Qualified Code(s): J18.1 - Lobar pneumonia, unspecified organism History of Present Illness Consult date: 04/10/17 Requesting physician: Yuri aRza Reason for consult: abnormal CXR/CT Chief complaint: Difficulty Urinating History of present illness: This is a 46-year-old gentleman with a past medical history of schizophrenia and ethanol abuse who presented acutely intoxicated with complaints of difficulty with urination. He also reports having "passed out" several times some which was during micturition. He had a comprehensive radiological workup for trauma part of which included a CT of the thorax which was notable for a right upper lobe small cavitary lesion. He presented with evidence of possible sepsis and was started on broad-spectrum antimicrobials. He was also given aggressive volume resuscitation for sinus tachycardia which has since resolved. Because of this right upper lobe cavitary lesion pulmonary was consulted for further evaluation. When I spoke with the patient he was on airborne isolation precautions. He has a generally flat affect but was sincere and how answered questions. He lives at home with his girlfriend and another individual. He drinks heavily on a daily basis and smokes marijuana occasionally. He denies use of intravenous drugs. He denies direct exposure to those with tuberculosis although his housemate coughs up blood on a daily basis of unclear etiology. He has been homeless in the past and lived in shelters. He has never been incarcerated. He is never traveled outside of the [place]. He has a dog and cat at home but denies any exotic pets. He does not have any chronic rash or joint pains. He smokes heavily since his teenage years over a pack a day. He denies hemoptysis or weight loss but does endorse waking up drenched in sweat. He denies family history of respiratory illness otherwise Past Med Surg Social Fam HX - Past Medical History Medical history: hypertension, other Psychiatric history: bipolar, depression, schizophrenia - Past Surgical History Surgical History: other - Social History Smoking Status: Current every day smoker Smokeless Tobacco Status: No Alcohol use: occasionally Drug use: none, marijuana, methamphetamine - Family History Father Living Status: Still Living Mother Living Status: Still Living Medications and Allergies Benztropine [Cogentin] 1 mg PO HS 01/22/17 [History] Gabapentin [Neurontin] 600 mg PO QID 01/22/17 [History] Lurasidone HCl [Latuda] 120 mg PO DAILY 01/22/17 [History] Trazodone HCl 350 mg PO HS 01/22/17 [History] Venlafaxine XR (24 HR) [Effexor Xr] 150 mg PO DAILY 01/22/17 [History] risperiDONE [Risperdal] 2 mg PO BID 01/22/17 [History] Cholecalciferol (D-3) [Vitamin D] 2,000 unit PO DAILY 04/09/17 [History] Iron Polysaccharide Complex [Pro Fe] 180 mg PO BID 04/09/17 [History] 3 Allergy/AdvReac Type Severity Reaction Status Date / Time propoxyphene Allergy Rash Verified 01/22/17 10:38 [From EliotBethanie] All Systems: A 10-system review of systems was performed and is negative for pertinent findings except as documented above in the HPI. Physical Examination General appearance: no acute distress Eyes: nonicteric ENT: oropharynx dry Neck: supple, no lymphadenopathy Effort: normal Auscultation: bilateral: clear Cardiovascular: regular rate and rhythm Gastrointestinal: normoactive bowel sounds Integumentary: normal Extremities: no cyanosis, no edema, no clubbing Musculoskeletal: no deformities normal mental status, non-focal exam other (Flat affect) Results - Laboratory Findings CBC and BMP: 04/10/17 05:44 04/10/17 05:44 PT/INR, D-dimer PT 11.7 Seconds (9.4-12.1) 04/09/17 10:20 Abnormal lab findings: Abnormal lab results Hgb 9.6 g/dL (12.9-16.9) L D 04/10/17 05:44 Hct 32.9 % (37.5-50.1) L 04/10/17 05:44 MCV 69.0 fL (83.0-100.0) L 04/10/17 05:44 MCH 20.1 pg (28.0-33.3) L 04/10/17 05:44 MCHC 29.2 g/dL (31.6-35.5) L 04/10/17 05:44 RDW 22.6 % (11.5-14.5) H 04/10/17 05:44 Neutrophils # 11.7 K/mcL (1.6-8.9) H 04/09/17 10:20 Toxic Granulation Present (Not Present) A 04/09/17 10:20 Anisocytosis 1+ (Not Present) A 04/09/17 10:20 Microcytosis Present (Not Present) A 04/09/17 10:20 BUN 3 mg/dL (8-26) L 04/10/17 05:44 BUN/Creatinine Ratio 4 (6-26) L 04/10/17 05:44 Lactic Acid 5.3 mmol/L (0.5-2.2) H* 04/09/17 16:50 Calcium 8.2 mg/dL (8.6-10.8) L 04/10/17 05:44 Creatine Kinase 388 Units/L (30-200) H 04/09/17 10:20 Serum Total Protein 8.7 g/dL (6.0-8.3) H 04/09/17 10:20 Globulin 5.1 g/dL (2.4-3.5) H 04/09/17 10:20 Albumin/Globulin Ratio 0.7 (1.1-2.2) L 04/09/17 10:20 U Marijuana (THC) Screen Positive ng/mL (Cutoff = 50) H 04/09/17 11:34 Ethyl Alcohol 73 mg/dL (0-10) H 04/09/17 10:20 - Microbiology Findings Microbiology Findings: Microbiology, Last 48 Hours 04/09/17 22:24 Sputum Culture - Preliminary Sputum - Diagnostic Findings Chest x-ray: report reviewed, image reviewed CT scan - chest: report reviewed, image reviewed - Clinical Findings Intake & Output: Intake & Output 04/09/17 04/09/17 04/10/17 15:59 23:59 07:59 Intake Total 350 / 350 200 / 200 Output Total 1999 1625 / 1625 Balance -1650 / -1650 -1425 / -1425 Consult Discharge Plan - Plan Referrals: NONE,PCP [Primary Care Provider] -
[2017-04-10 06:49] LABS: Platelet Estimate Normal (Normal)
[2017-04-10 06:51] LABS: Anisocytosis 1+ (Not Present)
[2017-04-10] MEDS: 0.9 % Sodium Chloride 1,000 ML IVC SCH ×3 (07:19→20:18)
[2017-04-10] MEDS: Gabapentin 300 MG CAPSULE PO SCH ×4 (08:01→20:31)
[2017-04-10] MEDS: Iron Polysaccharide Complex 150 MG CAPSULE PO SCH ×2 (08:01→20:33)
[2017-04-10] MEDS: risperiDONE 1 MG TABLET PO SCH ×2 (08:01→20:31)
[2017-04-10] MEDS: Cholecalciferol (D-3) 1,000 UNIT TABLET PO SCH (08:02)
[2017-04-10] MEDS: Thiamine (B-1) 100 MG, Folic Acid 1 MG, MVI, adult with vitamin K 10 ML in 0.9 % Sodi... IVPB SCH ×2 (08:02→16:53)
[2017-04-10] MEDS: Venlafaxine XR (24 HR) 150 MG CAP.ER.24H PO SCH (08:02)
[2017-04-10] MEDS: Vancomycin 1,250 MG in D5% in Water 250 ML IVPB SCH ×2 (08:03→20:22)
--- NOTE | 2017-04-10 10:44 | Internal Med Progress Note ---
Date of Encounter: 04/10/17 Time of Encounter: 08:00 - Assessment and plan (1) Cavitary lesion of lung Current Visit: Yes Status: Acute Assessment and plan: seen by pulm. appreciate their help. w/u for TB and fungal infection is pending still. There is plans for a bronch while hospitalized (2) Pneumonia Current Visit: Yes Status: Acute Assessment and plan: c/w IV vanco/zosyn. f/u n urine strep/legionella. c/w work up for cavitary lesion as above. repeat lactic acid. f/u on cultures Qualifiers: Pneumonia type: due to unspecified organism Laterality: right Lung location: upper lobe of lung Qualified Code(s): J18.1 - Lobar pneumonia, unspecified organism (3) Syncope and collapse Current Visit: Yes Status: Acute Assessment and plan: Likely vasovagal as it happened while urinating. Possibly was intoxicated. He has an echo pending. (4) Urinary retention Current Visit: Yes Status: Acute Assessment and plan: Brown placed. Will remove brown and do voiding trials. Hold Cogentin (5) Chronic alcohol abuse Current Visit: Yes Status: Acute Assessment and plan: No signs of withdrawals. c/w banana bag. c/w ativan per ciwa. (6) Diarrhea Current Visit: Yes Status: Acute Assessment and plan: seems to be better. stools negative so far. will add imodium Qualifiers: Diarrhea type: unspecified type Qualified Code(s): R19.7 - Diarrhea, unspecified (7) DVT prophylaxis Current Visit: Yes Status: Acute Assessment and plan: heparin SQ - Subjective Interval history: No acute events. Patient is much better improved clinically this morning. He feels better. He's been afebrile. - Constitutional Vitals: Temp Pulse Resp BP Pulse Ox 97.8 F 98 16 143/84 96 04/10/17 10:19 04/10/17 10:19 04/10/17 10:19 04/10/17 10:19 04/10/17 10:19 Exam: GEN: NAD CVS: RRR. S1, S2, No m/r/g RESP: coarse on the right upper fraire ABD: Soft, NT, ND, +BS EXT: No edema. 2+ DP, No rashes NEURO: Nonfocal Internal Medicine: Result - Labs CBC & Chem 7: 04/10/17 05:44 04/10/17 05:44 Labs: Short CBC 04/10/17 Range/Units 05:44 WBC 6.5 D (4.3-11.1) K/mcL Hgb 9.6 L D (12.9-16.9) g/dL Hct 32.9 L (37.5-50.1) % Plt Count 244 (140-400) K/mcL Neutrophils # 4.5 (1.6-8.9) K/mcL BMP 04/10/17 05:44 Sodium 139 Potassium 3.9 Chloride 107 Carbon Dioxide 25 BUN 3 L Creatinine 0.74 Glucose 86 Calcium 8.2 L - ABG Interpretation ABG results: PT/INR, D-dimer PT 11.7 Seconds (9.4-12.1) 04/09/17 10:20 Consult Discharge Plan - Plan Referrals: NONE,PCP [Primary Care Provider] -
[2017-04-10] MEDS: Sodium Chloride for inhalation 3 ML VIAL IH SCH ×2 (15:21→22:42)
[2017-04-10] MEDS: traZODone 50 MG TABLET PO SCH (20:31)
[2017-04-11] MEDS: *HR* Heparin 5,000 UNIT/ML VIAL SQ SCH ×4 (00:47→23:42)
[2017-04-11] MEDS: Piperacillin/Tazobactam 3.375 GM/200 ML BAG IVPB SCH ×4 (01:47→23:40)
[2017-04-11] MEDS: 0.9 % Sodium Chloride 1,000 ML IVC SCH ×2 (06:46→17:31)
[2017-04-11 07:23] LABS: Red Cell Distribution Width 22.5 % (11.5-14.5)
[2017-04-11 07:24] LABS: Basophils % 0.4 %; Eosinophils # 0.2 K/mcL (0.0-0.6); Eosinophils % 4.3 %; Hematocrit 30.5 % (37.5-50.1); Hemoglobin 8.5 g/dL (12.9-16.9); Immature Granulocytes % 0.5 % (0-4); Lymphocytes % 17.4 %; Mean Corpuscular HGB Conc 27.9 g/dL (31.6-35.5); Mean Corpuscular Volume 71.6 fL (83.0-100.0); Mean Platelet Volume 9.7 fL (9.4-12.4); Monocytes # 0.4 K/mcL (0.0-1.3); Neutrophils # 3.8 K/mcL (1.6-8.9); Platelet Count 182 K/mcL (140-400); Red Blood Count 4.26 M/mcL (4.19-5.50); Segmented Neutrophils % 69.4 %
[2017-04-11] MEDS ORDERED: *HR* Midazolam HCl 5 MG/5 ML VIAL IVP ONE ×2 (07:40→08:10)
[2017-04-11] MEDS ORDERED: *HR* FentaNYL (PF) 100 MCG/2 ML VIAL ONE (07:41)
[2017-04-11] MEDS: Sodium Chloride for inhalation 3 ML VIAL IH SCH ×2 (07:43→20:23)
[2017-04-11] MEDS ORDERED: *HR* EPINEPHrine 1 MG/10 ML SYRINGE INTRATRACH PRN (08:10)
[2017-04-11] MEDS ORDERED: *HR* FentaNYL (PF) 100 MCG/2 ML VIAL IVP ONE (08:10)
[2017-04-11] MEDS ORDERED: Tetracaine/Benzocaine/Butamben 200MG/SPRAY (100SPY/BOT) MM ONE (08:10)
--- NOTE | 2017-04-11 08:10 | Pre-Sedation Evaluation ---
Pre-sedation evaluation - Pre-sedation checklist Date of procedure: 04/11/17 Procedure: Bronchoscopy Recent Vitals: Last Vital Signs Temp 98.1 F 04/11/17 06:46 Pulse 71 04/11/17 06:46 Resp 18 04/11/17 07:43 BP 159/89 04/11/17 06:46 Pulse Ox 98 04/11/17 07:43 H&P (including ROS) documented in medical record: Yes Previous reaction to sedatives/anesthetics: No Dietary Status: NPO after Midnight Airway Assessment: Patient can open mouth completely, TMJ function normal Dentition: dentures removed Possible difficult airway: No ASA Classification *see protocol: CLASS III-Severe systemic disease Plan of Care: Pt appropriate candidate for procedure/moderate/conscious sedation , Risks/benefits of procedure/sedation discussed w/ patient/family
[2017-04-11 08:19] LABS: Anisocytosis 2+ (Not Present); Hypochromasia Present (Not Present); Microcytosis Present (Not Present); Platelet Estimate Normal (Normal)
--- NOTE | 2017-04-11 08:44 | Pulmonology Progress Note ---
Date of Encounter: 04/11/17 Time of Encounter: 08:40 Assessment and Plan (1) Cavitary lesion of lung Current Visit: Yes Status: Acute I suspect this is infectious in etiology and patient has gram-negative rods in sputum Status post bronchoscopy today AFB 1/2 negative DC airborne precautions after second AFB negative Follow up bronchoscopy results continue antimicrobials with planned to de- escalate over the next 24 hours based upon cultures Would likely treat for pneumonia and then repeat CT scan in 4-6 weeks with further determination of workup based upon radiographical response (2) Lactic acidosis Current Visit: Yes Status: Acute This has resolved. (3) Tobacco abuse Current Visit: Yes Status: Acute [employer] Abuse counseling given Follow-up pulmonary clinic with PFTs (4) Pneumonia Current Visit: Yes Status: Acute This is being treated with antibiotics Qualifiers: Pneumonia type: due to unspecified organism Laterality: right Lung location: upper lobe of lung Qualified Code(s): J18.1 - Lobar pneumonia, unspecified organism Subjective Principal diagnosis: Pneumonia Interval history: No acute events overnight. Patient says he feels comfortable. Denies fevers. One AFB out of 2 has come back negative Objective PUL Vital signs: Last Vital Signs Temp 98.5 F 04/11/17 08:06 Pulse 88 04/11/17 08:35 Resp 18 04/11/17 08:35 BP 175/96 04/11/17 08:35 Pulse Ox 94 04/11/17 08:35 General appearance: no acute distress Eyes: nonicteric ENT: oropharynx moist Auscultation: bilateral: clear Cardiovascular: regular rate and rhythm Gastrointestinal: normoactive bowel sounds Extremities: no cyanosis, no edema, no clubbing normal mental status, non-focal exam other (Flat Affect ) Results - Laboratory Findings CBC and BMP: 04/11/17 06:54 04/10/17 05:44 PT/INR, D-dimer PT 11.7 Seconds (9.4-12.1) 04/09/17 10:20 Abnormal lab findings: Abnormal lab results Hgb 8.5 g/dL (12.9-16.9) L 04/11/17 06:54 Hct 30.5 % (37.5-50.1) L 04/11/17 06:54 MCV 71.6 fL (83.0-100.0) L 04/11/17 06:54 MCH 20.0 pg (28.0-33.3) L 04/11/17 06:54 MCHC 27.9 g/dL (31.6-35.5) L 04/11/17 06:54 RDW 22.5 % (11.5-14.5) H 04/11/17 06:54 Toxic Granulation Present (Not Present) A 04/09/17 10:20 Hypochromasia Present (Not Present) A 04/11/17 06:54 Anisocytosis 2+ (Not Present) A 04/11/17 06:54 Microcytosis Present (Not Present) A 04/11/17 06:54 BUN 3 mg/dL (8-26) L 04/10/17 05:44 BUN/Creatinine Ratio 4 (6-26) L 04/10/17 05:44 POC Glucose 90 (58-89) H 04/11/17 05:19 Calcium 8.2 mg/dL (8.6-10.8) L 04/10/17 05:44 Creatine Kinase 388 Units/L (30-200) H 04/09/17 10:20 Serum Total Protein 8.7 g/dL (6.0-8.3) H 04/09/17 10:20 Globulin 5.1 g/dL (2.4-3.5) H 04/09/17 10:20 Albumin/Globulin Ratio 0.7 (1.1-2.2) L 04/09/17 10:20 Vancomycin Trough 8.3 mcg/mL (10-20) L 04/11/17 06:54 U Marijuana (THC) Screen Positive ng/mL (Cutoff = 50) H 04/09/17 11:34 Ethyl Alcohol 73 mg/dL (0-10) H 04/09/17 10:20 - Microbiology Findings Microbiology Findings: Microbiology, Last 48 Hours 04/09/17 22:24 Sputum Culture - Preliminary Sputum Gram Negative Malachi 04/09/17 22:24 Acid Fast Stain - Final Sputum - Clinical Findings Intake & Output: Intake & Output 04/10/17 04/11/17 04/11/17 23:59 07:59 15:59 Intake Total 1961.2 / 1961.2 950 / 950 Output Total 600 / 600 4800 / 4800 Balance 1361.2 / 1361.2 -3850 / -3850 Weight 53.977 kg 53.932 kg Consult Discharge Plan - Plan Referrals: NONE,PCP [Primary Care Provider] -
[2017-04-11 09:43] LABS: Alanine Aminotransferase 15 Units/L (0-55); Albumin/Globulin Ratio 0.6 (1.1-2.2); Alkaline Phosphatase 74 Units/L (38-126); Aspartate Amino Transferase 27 Units/L (5-34); BUN/Creatinine Ratio 3 (6-26); Bilirubin,Total 0.5 mg/dL (0.2-1.2); Blood Urea Nitrogen 2 mg/dL (8-26); Carbon Dioxide 25 mEq/L (19-29); Chloride 108 mEq/L (98-109); Globulin 4.4 g/dL (2.4-3.5); Glucose 104 mg/dL (70-99); Osmolality,Calculated 284 (280-300); Potassium 3.7 mEq/L (3.5-4.5); Sodium 139 mEq/L (136-145); Total Protein 7.1 g/dL (6.0-8.3); eGFR For African Americans > 60 (> 60); eGFR For Non-African Americans > 60 (> 60)
[2017-04-11 09:44] LABS: Albumin 2.7 g/dL (3.5-5.0)
[2017-04-11] MEDS: Ringers Solution, Lactated 1,000 ML IVC SCH (10:28)
[2017-04-11] MEDS ORDERED: Aminoglycoside Consult 1 EACH MC ONE (10:28)
[2017-04-11 10:29] LABS: Appearance of Body Fluid Clear (Clear); Volume of Body Fluid 8 mL
--- NOTE | 2017-04-11 10:34 | Internal Med Progress Note ---
Date of Encounter: 04/11/17 Time of Encounter: 07:00 - Assessment and plan (1) Cavitary lesion of lung Current Visit: Yes Status: Acute Assessment and plan: seen by pulm. Plan bronchoscopy this morning. First AFB is negative. Appreciate pulmonary's help. The rest of his workup for TB and fungal infection is still pending. He is growing gram-negative rods from sputum cultures. (2) Pneumonia Current Visit: Yes Status: Acute Assessment and plan: Continue with IV vancomycin and Zosyn. As cultures have grown gram-negative rods from sputum sensitivities are still pending. He has negative urine strep and Legionella. His workup with a cavitary lesion is as above Qualifiers: Pneumonia type: due to unspecified organism Laterality: right Lung location: upper lobe of lung Qualified Code(s): J18.1 - Lobar pneumonia, unspecified organism (3) Syncope and collapse Current Visit: Yes Status: Acute Assessment and plan: Likely vasovagal as it happened while urinating. Possibly was intoxicated. Echo results noted with no significant findings.. (4) Microcytic anemia Current Visit: Yes Status: Acute Assessment and plan: There is a drop in hemoglobin this morning is down to the 8's. The patient's hemoglobin was 11.5 on admission. I believe part of this is dilutional given that the white blood cell count as well as the platelet several dropped with IV fluids he has no signs of bleeding. I will be checking iron studies. We will continue to monitor for now check labs in the morning. (5) Urinary retention Current Visit: Yes Status: Acute Assessment and plan: I have asked for the Hyatt to be removed. Hold Cogentin (6) Chronic alcohol abuse Current Visit: Yes Status: Acute Assessment and plan: No signs of withdrawals. c/w banana bag. c/w ativan per [place]. (7) Diarrhea Current Visit: Yes Status: Acute Assessment and plan: Continue with Imodium. stools negative so far. Qualifiers: Diarrhea type: unspecified type Qualified Code(s): R19.7 - Diarrhea, unspecified (8) DVT prophylaxis Current Visit: Yes Status: Acute Assessment and plan: heparin SQ - Subjective Interval history: No acute events. He has been afebrile the plan is for bronchoscopy this morning. The cough is somewhat improved. - Constitutional Vitals: Temp Pulse Resp BP Pulse Ox 98.5 F 88 18 175/96 94 04/11/17 08:06 04/11/17 08:35 04/11/17 08:35 04/11/17 08:35 04/11/17 08:35 Exam: GEN: NAD CVS: RRR. S1, S2, No m/r/g RESP: coarse on the right upper fraire ABD: Soft, NT, ND, +BS EXT: No edema. 2+ DP, No rashes NEURO: Nonfocal Internal Medicine: Result - Labs CBC & Chem 7: 04/11/17 06:54 04/11/17 08:53 Labs: Short CBC 04/11/17 Range/Units 06:54 WBC 5.5 (4.3-11.1) K/mcL Hgb 8.5 L (12.9-16.9) g/dL Hct 30.5 L (37.5-50.1) % Plt Count 182 (140-400) K/mcL Neutrophils # 3.8 (1.6-8.9) K/mcL BMP 04/11/17 08:53 Sodium 139 Potassium 3.7 Chloride 108 Carbon Dioxide 25 BUN 2 L Creatinine 0.78 Glucose 104 H Calcium 8.0 L Liver Function 04/11/17 Range/Units 08:53 Total Bilirubin 0.5 (0.2-1.2) mg/dL AST 27 (5-34) Units/L ALT 15 (0-55) Units/L Alkaline Phosphatase 74 (38-126) Units/L Albumin 2.7 L D (3.5-5.0) g/dL - ABG Interpretation ABG results: PT/INR, D-dimer PT 11.7 Seconds (9.4-12.1) 04/09/17 10:20 - Impressions Impressions Echocardiogram 04/10/17 07:00 Impressions: LVEF 60%. Mild left ventricular diastolic dysfunction. Normal right ventricular structure and function. No significant valvular dysfunction. Left Ventricular Wall Motion: Rest Echo Findings All wall segments showed normal motion. Findings: Study Quality * Technically adequate exam. ECG Findings * Normal sinus rhythm. Left Ventricle * LVEF 60%. * Mild left ventricular diastolic dysfunction. Right Ventricle * Normal right ventricular structure and function. Left Atrium * Normal left atrial size. Right Atrium * Normal right atrial size. Interatrial Septum * No evidence of PFO by color Doppler. Aortic Valve * Aortic valve not well visualized. * No aortic regurgitation. * No aortic stenosis. Mitral Valve * Normal mitral valve structure and function. Tricuspid Valve * Normal tricuspid valve structure and function. Pulmonic Valve * Normal pulmonic valve structure and function. Aorta * Normally sized aortic root. Pericardium * The pericardium appears normal. IVC * Normal IVC dimensions and inspiratory collapse. Consult Discharge Plan - Plan Referrals: NONE,PCP [Primary Care Provider] -
[2017-04-11] MEDS: Venlafaxine XR (24 HR) 150 MG CAP.ER.24H PO SCH (10:39)
[2017-04-11] MEDS: Vancomycin 1,250 MG in D5% in Water 250 ML IVPB SCH ×2 (10:39→17:31)
[2017-04-11] MEDS: Gabapentin 300 MG CAPSULE PO SCH ×4 (10:39→20:32)
[2017-04-11] MEDS: Cholecalciferol (D-3) 1,000 UNIT TABLET PO SCH (10:39)
[2017-04-11] MEDS: Iron Polysaccharide Complex 150 MG CAPSULE PO SCH ×2 (10:39→20:32)
[2017-04-11] MEDS: risperiDONE 1 MG TABLET PO SCH ×2 (10:39→20:32)
--- NOTE | 2017-04-11 13:21 | Electrocardiograph Report ---
[place] [facility] Test Date: 2017-04-09 Pat Name: Jersey Guzman Department: 103 Room: 3A11 Gender: M Physically Impaired Teacher: ED : 1970 Requested By: Manoj Corley Order Number: [id number] Reading MD: Tyshawn Johnson DO Measurements Intervals [place] Rate: 134 P: 66 IA: 143 QRS: 69 QRSD: 77 T: 60 QT: 324 QTc: 403 Interpretive Statements SINUS TACHYCARDIA NONSPECIFIC T-WAVE ABNORMALITY ABNORMAL RHYTHM ECG Electronically Signed On 04-11-2017 13:20:01 EST by Tyshawn Johnson DO
[2017-04-11 14:47] LABS: % Iron Saturation 5 % (20-55); Iron 18 mcg/dL (65-175); Transferrin 284 mg/dL (174-364)
[2017-04-11] MEDS: Thiamine (B-1) 100 MG, Folic Acid 1 MG, MVI, adult with vitamin K 10 ML in 0.9 % Sodi... IVPB SCH (17:31)
[2017-04-11] MEDS: traZODone 50 MG TABLET PO SCH (20:37)
[2017-04-12] MEDS: Vancomycin 1,250 MG in D5% in Water 250 ML IVPB SCH (02:12)
[2017-04-12 04:21] LABS: Basophils % 0.4 %; Eosinophils # 0.4 K/mcL (0.0-0.6); Eosinophils % 5.9 %; Hematocrit 35.4 % (37.5-50.1); Hemoglobin 10.2 g/dL (12.9-16.9); Immature Granulocytes % 1.3 % (0-4); Lymphocytes # 1.6 K/mcL (0.6-4.6); Lymphocytes % 22.9 %; Mean Corpuscular HGB Conc 28.8 g/dL (31.6-35.5); Mean Corpuscular Hemoglobin 20.2 pg (28.0-33.3); Mean Corpuscular Volume 70.1 fL (83.0-100.0); Mean Platelet Volume 9.9 fL (9.4-12.4); Monocytes # 0.5 K/mcL (0.0-1.3); Monocytes % 6.7 %; Neutrophils # 4.3 K/mcL (1.6-8.9); Nucleated Red Blood Cells 0.3 /100 WBC (0); Platelet Count 174 K/mcL (140-400); Red Blood Count 5.05 M/mcL (4.19-5.50); Red Cell Distribution Width 22.9 % (11.5-14.5); Segmented Neutrophils % 62.8 %
[2017-04-12 04:30] LABS: BUN/Creatinine Ratio 5 (6-26); Carbon Dioxide 22 mEq/L (19-29); Chloride 107 mEq/L (98-109); Glucose 127 mg/dL (70-99); Osmolality,Calculated 282 (280-300); Potassium 4.3 mEq/L (3.5-4.5); eGFR For African Americans > 60 (> 60); eGFR For Non-African Americans > 60 (> 60)
[2017-04-12 04:33] LABS: Blood Urea Nitrogen 4 mg/dL (8-26); Sodium 137 mEq/L (136-145)
[2017-04-12] MEDS: 0.9 % Sodium Chloride 1,000 ML IVC SCH (04:33)
[2017-04-12 04:56] LABS: Anisocytosis 1+ (Not Present); Hypochromasia Present (Not Present); Platelet Estimate Normal (Normal)
[2017-04-12 06:38] VITALS: BP 146/89
[2017-04-12] MEDS: Ringers Solution, Lactated 1,000 ML IVC SCH (08:03)
--- NOTE | 2017-04-12 08:08 | Discharge Summary ---
Date of Encounter: 04/13/17 Time of Encounter: 08:00 - Discharge Diagnosis (1) Cavitary lesion of lung Priority: Primary Status: Acute (2) Pneumonia Priority: Primary Status: Acute Qualifiers: Pneumonia type: due to unspecified organism Laterality: right Lung location: upper lobe of lung Qualified Code(s): J18.1 - Lobar pneumonia, unspecified organism (3) Syncope and collapse Priority: Primary Status: Acute (4) Microcytic anemia Priority: Primary Status: Acute (5) Urinary retention Priority: Primary Status: Acute (6) Chronic alcohol abuse Priority: Secondary Status: Acute (7) Diarrhea Priority: Primary Status: Acute Qualifiers: Diarrhea type: unspecified type Qualified Code(s): R19.7 - Diarrhea, unspecified - Discharge Medications Prescriptions: levoFLOXacin [Levaquin] 500 mg PO DAILY #7 tablet Home Medications: Benztropine [Cogentin] 1 mg PO HS 01/22/17 [History] Gabapentin [Neurontin] 600 mg PO QID 01/22/17 [History] Lurasidone HCl [Latuda] 120 mg PO DAILY 01/22/17 [History] Trazodone HCl 350 mg PO HS 01/22/17 [History] Venlafaxine XR (24 HR) [Effexor Xr] 150 mg PO DAILY 01/22/17 [History] risperiDONE [Risperdal] 2 mg PO BID 01/22/17 [History] Cholecalciferol (D-3) [Vitamin D] 2,000 unit PO DAILY 04/09/17 [History] Iron Polysaccharide Complex [Pro Fe] 180 mg PO BID 04/09/17 [History] levoFLOXacin [Levaquin] 500 mg PO DAILY #7 tablet 04/12/17 [Rx] Allergies/Adverse Reactions: 3 Allergy/AdvReac Type Severity Reaction Status Date / Time propoxyphene Allergy Rash Verified 01/22/17 10:38 [From Anai] Date of admission: 04/09/17 18:27 Primary care physician: PCP NONE Consults: 04/10/17 06:36 Consult to Respiratory Therapy [CONS] Stat Reason for Consult: Induced sputum x 2 Call Completed: Yes 04/12/17 07:13 Consult to Physical Therapy [CONS] Routine Comment: Evaluate, develop and implement POC Reason for Consult: PT eval - Patient Status Disposition: Home, Self-Care Condition: Fair Overall status at discharge: patient is back to baseline - Discharge Instructions Instructions: Levofloxacin (By mouth), Community-acquired Pneumonia (DC) Follow Up With: Estela Hendrickson DO [Partnered Physician] - (appointment has been requested, please call office if they do not call in a couple of days with appointment) NONE,PCP [Primary Care Provider] - - Diet and Activity Activity: resume usual activities as tolerated Diet: regular diet Hospital course: Mr. Guzman is a 46 year old male who has a history of alcohol abuse as well as psychiatric disorders who presented initially to the hospital intoxicated. He was intoxicated and limited history was obtained. The patient initially presented with complaints of passing out while trying to urinate when he was not able to. He presented to the emergency department in a mostly altered state and he underwent this workup that included basic laboratory workup as well as multiple scans looking for trauma. He had a CT abdomen and pelvis that was negative. Also underwent multiple CT's cervical spine as well as thoracic and lumbar spine which were negative, however an incidental finding of a right upper lung field mass versus cavitary lesion was found for which a CT of the chest was done. There is also calcification and some hilar lymphadenopathy noted as well. He reported no fever or chills. He has been having loose stools over the last few days and his stools were negative for C. diff or any other infection. This resolved here on imodium. His work up in the ED also showed elevated white count and metabolic acidosis as well as lactic acidosis. We admitted the patient to the hospitalist service to rule out TB. He had 2 sputum 's there were checked for AFP and came back negative and his quantiferon goal is still pending. I started patient on broad-spectrum antibiotics for pneumonia. He did well the following day. His lactic acidosis resolved. His tachycardia resolved. Pulmonary saw the patient with me and they took him for bronchoscopy and cultures grew Klebsiella pneumonia that was susceptible to Levaquin which she was discharged on. He was counseled on alcohol abuse. He was discharged on 04/12/2017 - Time Spent with Patient Total time spent providing and/or coordinating discharge services: - Constitutional Vitals: Temp Pulse Resp BP Pulse Ox 97.7 F 71 14 146/89 96 04/12/17 06:30 04/12/17 06:30 04/12/17 06:30 04/12/17 06:30 04/12/17 06:30 Exam: GEN: NAD CVS: RRR. S1, S2, No m/r/g RESP: CTAB ABD: Soft, NT, ND, +BS EXT: No edema. 2+ DP. No rashes NEURO: Nonfocal
[2017-04-12] MEDS: Venlafaxine XR (24 HR) 150 MG CAP.ER.24H PO SCH (08:09)
[2017-04-12] MEDS: Cholecalciferol (D-3) 1,000 UNIT TABLET PO SCH (08:09)
[2017-04-12] MEDS: risperiDONE 1 MG TABLET PO SCH (08:09)
[2017-04-12] MEDS: Iron Polysaccharide Complex 150 MG CAPSULE PO SCH (08:09)
[2017-04-12] MEDS: Gabapentin 300 MG CAPSULE PO SCH (08:09)
[2017-04-12] MEDS: *HR* Heparin 5,000 UNIT/ML VIAL SQ SCH (08:10)
[2017-04-12] MEDS: Sodium Chloride for inhalation 3 ML VIAL IH SCH (08:36)
[2017-04-12] MEDS ORDERED: Levofloxacin 500 MG/100 ML 500 MG/100 ML BAG IVPB SCH (09:00)
[2017-04-12] MEDS ORDERED: FLUARIX QUAD 2017-18 36MOS UP/PF 0.5 ML SYRINGE IM ONE (09:43)
[2017-04-13 17:12] LABS: A.galactomannan Ag Index 0.05
[2017-04-13 21:35] LABS: QuantiFERON Mitogen minus NIL 6.27 IU/mL; QuantiFERON-TB minus NIL 0.02 IU/mL (0.00-0.34)
[2017-04-14 08:35] LABS: QuantiFERON NIL 0.08 IU/mL; QuantiFERON-TB Gold In-Tube NEGATIVE (Negative)
[2017-04-14 11:38] LABS: Influenza A PCR Body Fluid NOT DETECTED; Influenza B PCR Body Fluid NOT DETECTED; RVP Body Fluid Source BAL
[2017-04-14 15:42] LABS: RSV PCR Body Fluid NOT DETECTED
== END 2017-04-12 10:29 | disposition home or self-care (01) | DRG 720 ==
LOC: 3ANU 10:06 → EMEROO 10:06 → OBSVTOIN 18:27 → SUATTDRO 18:27 → 3ANU 19:02
PROVIDERS: ADMIT Hospitalist; ATTEND Internal Medicine

== ENCOUNTER 2017-05-04 12:04 | Observation (INO) ==
[2017-05-04] MEDS ORDERED: 0.9 % Sodium Chloride 1,000 ML IVC ONE ×2 (12:24→13:58)
[2017-05-04 13:14] LABS: Basophils # 0.1 K/mcL (0.0-0.2); Basophils % 0.6 %; Eosinophils % 0.2 %; Hematocrit 39.6 % (37.5-50.1); Hemoglobin 12.3 g/dL (12.9-16.9); Immature Granulocytes % 0.3 % (0-4); Lymphocytes # 1.3 K/mcL (0.6-4.6); Lymphocytes % 12.2 %; Mean Corpuscular HGB Conc 31.1 g/dL (31.6-35.5); Mean Corpuscular Hemoglobin 22.2 pg (28.0-33.3); Mean Corpuscular Volume 71.6 fL (83.0-100.0); Mean Platelet Volume 9.5 fL (9.4-12.4); Monocytes # 1.3 K/mcL (0.0-1.3); Monocytes % 11.7 %; Neutrophils # 8.1 K/mcL (1.6-8.9); Platelet Count 228 K/mcL (140-400); Red Blood Count 5.53 M/mcL (4.19-5.50); Red Cell Distribution Width 24.3 % (11.5-14.5)
--- NOTE | 2017-05-04 13:15 | Emergency Department Note ---
Disposition Clinical Impression: Tachycardia Nausea & vomiting Qualifiers: Vomiting type: unspecified Vomiting Intractability: unspecified Qualified Code( s): R11.2 - Nausea with vomiting, unspecified Rib fracture Qualifiers: Encounter type: initial encounter Rib fracture type: multiple ribs Fracture type: closed Laterality: unspecified laterality Qualified Code(s): S22.49XA - Multiple fractures of ribs, unspecified side, initial encounter for closed fracture Pneumothorax Qualifiers: Pneumothorax type: traumatic Encounter type: initial encounter Qualified Code(s ): S27.0XXA - Traumatic pneumothorax, initial encounter Disposition: Admitted As Inpatient Condition: Fair Referrals: Estela Hendrickson DO [Primary Care Provider] - Forms: ED Satisfaction Letter Time of Disposition: 16:23 Nausea/Vomiting/Diarrhea HPI - General Chief complaint: ED Nausea/Vomiting/Diarrhea Stated complaint: N/V Time Seen by Provider: 05/04/17 12:24 Source: patient Limitations: no limitations Nursing Notes Reviewed: Yes Vital Signs Reviewed: Yes - History of Present Illness HPI Narrative: 47-year-old has had nausea vomiting last couple days not able to keep anything down. Patient states he was able to drink beer though. Patient thinks he is dehydrated. Pt Subjective Complaint: nausea, vomiting Onset (ago): day(s) Description of emesis: food contents If pain, Location of pain: diffuse Severity: moderate Improves with: nothing Associated symptoms: Reports: denies other symptoms - Related Data Home Medications Medication Instructions Recorded Confirmed Benztropine [Cogentin] 1 mg PO HS 01/22/17 04/09/17 Gabapentin [Neurontin] 600 mg PO QID 01/22/17 04/09/17 Lurasidone HCl [Latuda] 120 mg PO DAILY 01/22/17 04/09/17 Trazodone HCl 350 mg PO HS 01/22/17 04/09/17 Venlafaxine XR (24 HR) [Effexor Xr] 150 mg PO DAILY 01/22/17 04/09/17 risperiDONE [Risperdal] 2 mg PO BID 01/22/17 04/09/17 Cholecalciferol (D-3) [Vitamin D] 2,000 unit PO DAILY 04/09/17 04/09/17 Iron Polysaccharide Complex [Pro 180 mg PO BID 04/09/17 04/09/17 Fe] Previous Rx's Medication Instructions Recorded levoFLOXacin [Levaquin] 500 mg PO DAILY #7 tablet 04/12/17 Allergies Allergy/AdvReac Type Severity Reaction Status Date / Time propoxyphene Allergy Rash Verified 01/22/17 10:38 [From Anai] All systems ED: reviewed and negative except as stated. Constitutional: Denies: fever, chills, weakness, weight change Eyes: Denies: eye pain, eye discharge, vision change ENT ED: Denies: ear pain, throat pain, dental pain, hearing loss, epistaxis, congestion, dysphagia Cardiovascular: Denies: chest pain, palpitations, dyspnea on exertion, edema, syncope Respiratory: Denies: cough, dyspnea, wheezes, hemoptysis, stridor Gastrointestinal: Reports: abdominal pain, nausea, vomiting. Denies: diarrhea, constipation, hematemesis, melena, hematochezia Genitourinary: Denies: urgency, dysuria, frequency, hematuria Musculoskeletal: Denies: back pain, neck pain, arthralgia, myalgia Integumentary: Denies: rash, abrasion, lesions Neurological: Denies: headache, weakness, numbness, paresthesias, confusion, abnormal gait, vertigo Psychiatric: Denies: anxiety, depression, suicidal thoughts, homicidal thoughts , auditory hallucinations, visual hallucinations Endocrine: Denies: fatigue Hematological/Lymphatic: Denies: easy bleeding, easy bruising Allergic/Immunologic: Denies: facial swelling, urticaria Past Medical History - Past Medical History Medical history: Reports: no medical history Surgical history: Reports: other Psychiatric history: Reports: bipolar, depression, schizophrenia - Social History Smoking Status: Current every day smoker Smokeless Tobacco Status: No Alcohol use: Reports: heavy Drug use: Reports: none, marijuana, methamphetamine Physical Exam - General Limitations: no limitations General appearance: alert, in no apparent distress - Head Head exam: atraumatic, normocephalic, normal inspection - Eye Eye exam: Present: normal appearance, PERRL, EOMI - ENT ENT exam: normal exam, normal oropharynx, mucous membranes moist - Neck Neck exam: Present: normal inspection, full ROM, trachea midline - Chest Chest inspection: Present: normal inspection, symmetric chest wall rise - Respiratory Respiratory exam: Present: normal lung sounds bilaterally - Cardiovascular Cardiovascular exam: Present: regular rate, normal rhythm, normal heart sounds - Abdominal Exam Abdominal exam: Present: tenderness. Absent: guarding, rebound Abdominal tenderness: Present: epigastrium - Extremities Exam Extremities exam: Present: normal inspection, full ROM. Absent: tenderness, pedal edema - Expanded Lower Extremity Exam Neurovascular/Tendon exam: Absent: motor deficit, sensory deficit, tendon deficit Gait: observed and normal - Back Exam Back exam: Present: normal inspection, full ROM. Absent: tenderness - Neurological Exam Neurological exam: Present: alert, oriented X3 - Psychiatric Psychiatric exam: Present: normal affect, normal mood - Skin Skin exam: Present: warm, dry, intact, normal color Course - Reevaluation(s) Reevaluation #1: 47-year-old who comes in with multiple episodes of nausea and vomiting. Workup found him to be in sinus tach he was given a couple liters of fluids heart rate came down from 150s to 160s down to 1 teens. Also found to have a small pneumo and a couple of rib fractures. Doesn't appear that he requires a chest tube. Consultation obtained with surgery. Patient will be admitted for further evaluation and treatment. Time: 16:29 - Consultations Consultation #1: Consultation with Dr. Ayala, follow pneumothorax Time: 16:28 Consultation #2: Discussed with Dr. Alberts, admit. Time: 16:28 Vital Signs Temperature 98.8 F 05/04/17 12:16 Pulse Rate 151 05/04/17 12:16 Respiratory Rate 18 05/04/17 12:16 Blood Pressure 128/90 05/04/17 12:16 O2 Sat by Pulse Oximetry 96 05/04/17 12:16 Temperature 98.8 F 05/04/17 12:16 Pulse Rate 151 05/04/17 12:16 Respiratory Rate 18 05/04/17 12:16 Blood Pressure 128/90 05/04/17 12:16 O2 Sat by Pulse Oximetry 96 05/04/17 12:16 Oxygen Delivery Oxygen Delivery Room Air Nausea/Vomiting/Diarrhea - Lab Data Lab results reviewed: Yes I reviewed the patient's lab results. Result diagrams: 05/04/17 12:58 05/04/17 12:58 Lab Results 05/04/17 05/04/17 05/04/17 Range/Units 12:58 12:58 13:23 WBC 10.8 (4.3-11.1) K/mcL RBC 5.53 H (4.19-5.50) M/mcL Hgb 12.3 L (12.9-16.9) g/dL Hct 39.6 (37.5-50.1) % MCV 71.6 L (83.0-100.0) fL MCH 22.2 L (28.0-33.3) pg MCHC 31.1 L (31.6-35.5) g/dL RDW 24.3 H (11.5-14.5) % Plt Count 228 (140-400) K/mcL MPV 9.5 (9.4-12.4) fL Immature Gran % 0.3 (0-4) % Seg Neutrophils % 75.0 % Lymphocytes % 12.2 % Monocytes % 11.7 % Eosinophils % 0.2 % Basophils % 0.6 % Neutrophils # 8.1 (1.6-8.9) K/mcL Lymphocytes # 1.3 (0.6-4.6) K/mcL Monocytes # 1.3 (0.0-1.3) K/mcL Eosinophils # 0.0 (0.0-0.6) K/mcL Basophils # 0.1 (0.0-0.2) K/mcL Platelet Estimate Normal (Normal) Anisocytosis 3+ A (Not Present) Microcytosis Present A (Not Present) Sodium 137 (136-145) mEq/L Potassium 3.5 (3.5-5.1) mEq/L Chloride 104 (98-107) mEq/L Carbon Dioxide 22 L (23-29) mEq/L BUN 4 L (6-20) mg/dL Creatinine 0.75 (0.70-1.30) mg/dL Est GFR ( Amer) > 60 (> 60) Est GFR (Non-Af Amer) > 60 (> 60) BUN/Creatinine Ratio 5 L (6-26) Glucose 116 H (70-105) mg/dL Calculated Osmolality 282 (280-300) Calcium 8.7 (8.6-10.3) mg/dL Total Bilirubin 0.4 (0.3-1.0) mg/dL Direct Bilirubin 0.1 (0.0-0.2) mg/dL Indirect Bilirubin 0.3 (0.0-1.2) mg/dL AST 23 (13-39) Units/L ALT 12 (7-52) Units/L Alkaline Phosphatase 89 (34-104) Units/L Serum Total Protein 7.8 (6.4-8.9) g/dL Albumin 3.9 (3.5-5.7) g/dL Globulin 3.9 H (2.4-3.5) g/dL Albumin/Globulin Ratio 1.0 L (1.1-2.2) Amylase 36 (29-103) Units/L Lipase 19 (11-82) Units/L Urine Color Yellow (Yellow) Urine Clarity Clear (Clear) Urine pH 6.0 (5.0-8.0) pH Units Ur Specific [place] 1.014 (1.010-1.025) Urine Protein Negative (Neg-Trace) mg/dL Urine Glucose (UA) Normal (Normal) mg/dL Urine Ketones Negative (Negative) mg/dL Urine Blood Negative (Negative) Urine Nitrite Negative (Negative) Urine Bilirubin Negative (Negative) Urine Urobilinogen Normal (Normal) mg/dL Ur Leukocyte Esterase Negative (Negative) Ur Culture Indicated? NO (NO) Ethyl Alcohol 92 H (0-10) mg/dL - Radiology Data Radiology results reviewed: Yes I reviewed the patient's radiology results. Abdomen/Pelvis CT 05/04/17 13:13 IMPRESSION: Minimally displaced fractures of the left 7th through 12th ribs. Trace left pneumothorax. Bibasilar atelectasis/ scarring. Diffuse bladder wall thickening which may indicate underlying cystitis. Correlation with urinalysis suggested. No evidence for traumatic injury to the abdominal and pelvic structures. Small hiatal hernia. D/ / Joni Ghosh MD / Joni Ghosh MD Interpreting Provider: Joni Ghosh MD
[2017-05-04 13:32] LABS: Bilirubin,Urine Negative (Negative); Blood,Urine Negative (Negative); Clarity,Urine Clear (Clear); Color,Urine Yellow (Yellow); Glucose,Urine (UA) Normal (Normal); Ketones,Urine Negative (Negative); Leukocyte Esterase,Urine Negative (Negative); Nitrite,Urine Negative (Negative); Protein,Urine Negative (Neg-Trace); Specific Gravity,Urine 1.014 (1.010-1.025); Urobilinogen,Urine Normal (Normal)
[2017-05-04 13:36] LABS: Anisocytosis 3+ (Not Present); Microcytosis Present (Not Present); Platelet Estimate Normal (Normal)
[2017-05-04 13:40] LABS: Alanine Aminotransferase 12 Units/L (7-52); Albumin 3.9 g/dL (3.5-5.7); Alkaline Phosphatase 89 Units/L (34-104); Amylase 36 Units/L (29-103); Aspartate Amino Transferase 23 Units/L (13-39); BUN/Creatinine Ratio 5 (6-26); Bilirubin,Direct 0.1 mg/dL (0.0-0.2); Bilirubin,Indirect 0.3 mg/dL (0.0-1.2); Bilirubin,Total 0.4 mg/dL (0.3-1.0); Blood Urea Nitrogen 4 mg/dL (6-20); Calcium 8.7 mg/dL (8.6-10.3); Carbon Dioxide 22 mEq/L (23-29); Chloride 104 mEq/L (98-107); Globulin 3.9 g/dL (2.4-3.5); Glucose 116 mg/dL (70-105); Lipase 19 Units/L (11-82); Osmolality,Calculated 282 (280-300); Potassium 3.5 mEq/L (3.5-5.1); Sodium 137 mEq/L (136-145); Total Protein 7.8 g/dL (6.4-8.9); eGFR For African Americans > 60 (> 60); eGFR For Non-African Americans > 60 (> 60)
[2017-05-04] MEDS ORDERED: *HR* LORazepam 2 MG/ML VIAL IVP ONE (14:00)
[2017-05-04 14:35] LABS: Ethanol 92 mg/dL (0-10)
[2017-05-04] MEDS ORDERED: Ondansetron 4 MG/2 ML VIAL IVP ONE (17:12)
[2017-05-04] MEDS ORDERED: *HR* Morphine 2 MG/ML SYRINGE IVP ONE ×2 (17:12→18:37)
--- NOTE | 2017-05-04 18:33 | General Surgery Consult Note ---
<Gaby Montalvo - Last Filed: 05/04/17 19:01> Date of Encounter: 05/04/17 Time of Encounter: 18:26 Assessment and Plan (1) Pneumothorax Current Visit: Yes Status: Acute Trace left-sided pneumothorax most likely d/t fractures of ribs 7-12 on left side as seen on CT abdomen/pelvis. Pneumothorax small enough that a chest tube not currently required, no crepitus palpated. Patient is saturating 94% on room air, no respiratory distress; he is tachycardic with heart rate in the 110's, vital signs stable otherwise. Plan: Following pneumothorax--will re-evaluate again in AM Qualifiers: Pneumothorax type: traumatic Encounter type: initial encounter Qualified Code(s): S27.0XXA - Traumatic pneumothorax, initial encounter (2) Rib fracture Current Visit: Yes Status: Acute Minimally displaced fractures of left-sided ribs 7-[address] abdomen/ pelvis. Fractures are likely etiology for small pneumothorax also seen on CT. Plan: Pain control per primary team Qualifiers: Encounter type: initial encounter Rib fracture type: multiple ribs Fracture type: closed Laterality: left Qualified Code(s): S22.42XA - Multiple fractures of ribs, left side, initial encounter for closed fracture (3) Chronic alcohol abuse Current Visit: Yes Status: Acute Hx of EtoH abuse. Ethyl alcohol level of 92. Plan: Management per medicine team History of Present Illness Consult date: 05/04/17 Reason for consult: other (Lt rib fractures with Lt pneumothorax) History of present illness: Mr. Guzman is a 47-year-old gentleman with h/o EtOH abuse who presented to the emergency department today for nausea, vomiting, poor PO intake for a few days. CT abdomen/pelvis in ED revealed minimally displaced rib fractures (7th to 12th ) on the left and a small pneumothorax not large enough to require a chest tube. Patient fell on his coffee table, hitting his Lt side after "turning around too fast." He admits to associated shortness of breath and left-sided pain on deep inspiration. General surgery consulted for further evaluation and management of this pneumothorax. Past Med Surg Social Fam HX - Past Medical History Medical history: no medical history Psychiatric history: bipolar, depression, schizophrenia - Past Surgical History Surgical History: other - Social History Smoking Status: Current every day smoker Smokeless Tobacco Status: No Alcohol use: heavy Drug use: none, marijuana, methamphetamine - Family History Father Living Status: Still Living Mother Living Status: Still Living Medications and Allergies Benztropine [Cogentin] 1 mg PO HS 01/22/17 [History] Gabapentin [Neurontin] 600 mg PO QID 01/22/17 [History] Lurasidone HCl [Latuda] 120 mg PO DAILY 01/22/17 [History] Trazodone HCl 350 mg PO HS 01/22/17 [History] Venlafaxine XR (24 HR) [Effexor Xr] 150 mg PO DAILY 01/22/17 [History] risperiDONE [Risperdal] 2 mg PO BID 01/22/17 [History] Cholecalciferol (D-3) [Vitamin D] 2,000 unit PO DAILY 04/09/17 [History] Iron Polysaccharide Complex [Pro Fe] 180 mg PO BID 04/09/17 [History] 3 Allergy/AdvReac Type Severity Reaction Status Date / Time propoxyphene Allergy Rash Verified 05/04/17 16:53 [From Anai] Review of Systems All systems PM: A 10-system review of systems was performed and is negative for pertinent findings except as documented above in the HPI. General Surgery Exam Initial Vital Signs Temp Pulse Resp BP Pulse Ox 98.8 F 151 18 128/90 96 05/04/17 12:16 05/04/17 12:16 05/04/17 12:16 05/04/17 12:16 05/04/17 12:16 Exam Initial Vital Signs Temp Pulse Resp BP Pulse Ox 98.8 F 151 18 128/90 96 05/04/17 12:16 05/04/17 12:16 05/04/17 12:16 05/04/17 12:16 05/04/17 12:16 - General physical appearance no distress. negative: jaundice - Eyes normal ocular movement. negative: icteric - Neck trachea midline. negative: no venous distension - Respiratory normal respiratory effort, clear to auscultation, other (breath sounds deminished on left) - Integumentary other (no bruising on Lt side) - Neurologic CN 2-12 grossly intact - Musculoskeletal other (Lt ribs tender to palpation, no crepitus) - Psychiatric oriented to time, oriented to person, oriented to place Results - Labs 05/04/17 12:58 05/04/17 12:58 Abnormal lab results RBC 5.53 M/mcL (4.19-5.50) H 05/04/17 12:58 Hgb 12.3 g/dL (12.9-16.9) L 05/04/17 12:58 MCV 71.6 fL (83.0-100.0) L 05/04/17 12:58 MCH 22.2 pg (28.0-33.3) L 05/04/17 12:58 MCHC 31.1 g/dL (31.6-35.5) L 05/04/17 12:58 RDW 24.3 % (11.5-14.5) H 05/04/17 12:58 Anisocytosis 3+ (Not Present) A 05/04/17 12:58 Microcytosis Present (Not Present) A 05/04/17 12:58 Carbon Dioxide 22 mEq/L (23-29) L 05/04/17 12:58 BUN 4 mg/dL (6-20) L 05/04/17 12:58 BUN/Creatinine Ratio 5 (6-26) L 05/04/17 12:58 Glucose 116 mg/dL (70-105) H 05/04/17 12:58 Globulin 3.9 g/dL (2.4-3.5) H 05/04/17 12:58 Albumin/Globulin Ratio 1.0 (1.1-2.2) L 05/04/17 12:58 Ethyl Alcohol 92 mg/dL (0-10) H 05/04/17 12:58 All other labs normal. Consult Discharge Plan - Plan Referrals: Estela Hendrickson DO [Primary Care Provider] - <Samuel Ayala - Last Filed: 05/05/17 08:31> Date of Encounter: 05/04/17 Review of Systems All systems PM: A 10-system review of systems was performed and is negative for pertinent findings except as documented above in the HPI. General Surgery Exam Initial Vital Signs Temp Pulse Resp BP Pulse Ox 98.8 F 151 18 128/90 96 05/04/17 12:16 05/04/17 12:16 05/04/17 12:16 05/04/17 12:16 05/04/17 12:16 Exam Initial Vital Signs Temp Pulse Resp BP Pulse Ox 98.8 F 151 18 128/90 96 05/04/17 12:16 05/04/17 12:16 05/04/17 12:16 05/04/17 12:16 05/04/17 12:16 Results - Labs 05/05/17 04:46 05/05/17 04:46 Abnormal lab results Hgb 10.2 g/dL (12.9-16.9) L D 05/05/17 04:46 Hct 35.0 % (37.5-50.1) L 05/05/17 04:46 MCV 74.3 fL (83.0-100.0) L 05/05/17 04:46 MCH 21.7 pg (28.0-33.3) L 05/05/17 04:46 MCHC 29.1 g/dL (31.6-35.5) L 05/05/17 04:46 RDW 23.5 % (11.5-14.5) H 05/05/17 04:46 Anisocytosis 3+ (Not Present) A 05/05/17 04:46 Microcytosis Present (Not Present) A 05/05/17 04:46 Sodium 135 mEq/L (136-145) L 05/05/17 04:46 BUN 4 mg/dL (6-20) L 05/05/17 04:46 Creatinine 0.62 mg/dL (0.70-1.30) L 05/05/17 04:46 Calculated Osmolality 276 (280-300) L 05/05/17 04:46 Calcium 8.2 mg/dL (8.6-10.3) L 05/05/17 04:46 Globulin 3.9 g/dL (2.4-3.5) H 05/04/17 12:58 Albumin/Globulin Ratio 1.0 (1.1-2.2) L 05/04/17 12:58 U Marijuana (THC) Screen Positive ng/mL (Cutoff = 50) H 05/04/17 13:23 Ethyl Alcohol 92 mg/dL (0-10) H 05/04/17 12:58 Diabetes panel 05/05/17 Range/Units 04:46 Sodium 135 L (136-145) mEq/L Potassium 3.5 (3.5-5.1) mEq/L Chloride 104 (98-107) mEq/L Carbon Dioxide 26 (23-29) mEq/L BUN 4 L (6-20) mg/dL Creatinine 0.62 L (0.70-1.30) mg/dL Glucose 89 (70-105) mg/dL Calcium 8.2 L (8.6-10.3) mg/dL Calcium panel 05/05/17 Range/Units 04:46 Calcium 8.2 L (8.6-10.3) mg/dL Pituitary panel 05/05/17 Range/Units 04:46 Sodium 135 L (136-145) mEq/L Potassium 3.5 (3.5-5.1) mEq/L Chloride 104 (98-107) mEq/L Carbon Dioxide 26 (23-29) mEq/L BUN 4 L (6-20) mg/dL Creatinine 0.62 L (0.70-1.30) mg/dL Glucose 89 (70-105) mg/dL Calcium 8.2 L (8.6-10.3) mg/dL Adrenal panel 05/05/17 Range/Units 04:46 Sodium 135 L (136-145) mEq/L Potassium 3.5 (3.5-5.1) mEq/L Chloride 104 (98-107) mEq/L Carbon Dioxide 26 (23-29) mEq/L BUN 4 L (6-20) mg/dL Creatinine 0.62 L (0.70-1.30) mg/dL Glucose 89 (70-105) mg/dL Calcium 8.2 L (8.6-10.3) mg/dL All other labs normal. - Attending Attestation I examined this patient and my medical decision-making was reviewed with the Resident Physician. I agree with the documented findings, disposition and treatment plan as described except to the extent set forth below. The patient is seen and evaluated. He has sustained flow velocity on forced trauma to the left chest resulting in rib fractures. Ears concern for trace pneumothorax. He will be treated with oxygen and incentive spirometer as well as aggressive pain control. CAT scan or chest x-ray tomorrow. Samuel Ayala MD FACS
[2017-05-04 19:18] LABS: Amphetamine Screen,Urine Negative ng/mL (Cutoff=1000); Barbiturate Screen,Urine Negative ng/mL (Cutoff=200); Benzodiazepines Screen,Urine Negative ng/mL (Cutoff=200); Cannabinoid Screen,Urine Positive ng/mL (Cutoff = 50); Opiate Screen,Urine Negative ng/mL (Cutoff=300); Phencyclidine Screen,Urine Negative ng/mL (Cutoff=25)
[2017-05-04 19:51] LABS: Cocaine Screen,Urine Negative ng/mL (Cutoff= 300)
[2017-05-04] MEDS ORDERED: Ipratropium/Albuterol Neb 3 ML IH PRN (21:31)
[2017-05-04] MEDS ORDERED: Acetaminophen 325 MG TABLET PO PRN (21:31)
[2017-05-04] MEDS ORDERED: *HR* LORazepam 2 MG/ML VIAL IVP PRN ×3 (21:34)
--- NOTE | 2017-05-04 21:35 | Internal Med History&Physical ---
<Ness Francisco - Last Filed: 05/04/17 21:27> Date of Encounter: 05/04/17 Time of Encounter: 21:27 Assessment and Plan (1) Pneumothorax Current visit: Yes Status: Acute The patient complains of pain on the left side of his chest. He is afebrile and does not appear to be in any acute distress. The patient is satting at 94% currently on room air. CT of abdomen and pelvis showed minimally displaced fractures of the left 7th through 12th ribs and trace left pneumothorax. 1. Will order CT of chest without contrast to further evaluate. 2. General surgery is already consulted. Qualifiers: Pneumothorax type: traumatic Encounter type: initial encounter Qualified Code(s): S27.0XXA - Traumatic pneumothorax, initial encounter (2) Aspiration pneumonia Current visit: Yes Status: Acute Patient has a history of chronic alcohol abuse. Tox screen showed he was positive for ETOH with level of 92. Will continue to monitor the patient and place him on CIWA and antibiotics. Qualifiers: Lung location: unspecified part of lung Qualified Code(s): J69.0 - Pneumonitis due to inhalation of food and vomit (3) Chronic alcohol abuse Current visit: Yes Status: Acute Will place patient on CIWA protocol. (4) Cavitary lesion of lung Current visit: No Status: Acute Patient cavitary lesion of lung has grew Kleibsella twice. Cultures indicated that it was resistant to Ampicillin and sulbactam. Will order CT of chest without contrast to further evaluate and will place patient on Rocephin and Flagyl. (5) Nausea & vomiting Current visit: Yes Status: Acute Will control nausea and vomiting with antiemetic and fluid. Qualifiers: Vomiting type: unspecified Vomiting Intractability: unspecified Qualified Code(s): R11.2 - Nausea with vomiting, unspecified (6) Rib fracture Current visit: Yes Status: Acute Ct abdomen and pelvis showed minimally displaced fractures of the left 7th through 12th ribs and trace left pneumothorax. Will order CT of chest without contrast to further evaluate. Qualifiers: Encounter type: initial encounter Rib fracture type: multiple ribs Fracture type: closed Laterality: left Qualified Code(s): S22.42XA - Multiple fractures of ribs, left side, initial encounter for closed fracture (7) Head trauma Current visit: Yes Status: Acute The patient fell yesterday and cannot recall if he has hit his head. Patient also cannot recall if he has had any LOC, but he stated that his girlfriend told him that he "blacked out". Will order CT of head and brain without contrast to further evaluate. Qualifiers: Qualified Code(s): S09.90XA - Unspecified injury of head, initial encounter Internal Medicine - H&P: HPI Chief complaint: Nausea, vomiting, and left rib pain Admitted From: Emergency Dept History of present illness: Mr. Guzman is a 47 year old male with the past medical history of chronic alcohol abuse & insomnia who presented to the ED today complaining of nausea, vomiting, and left-sided rib pain. The patient stated that he started feeling nauseous. Today and had 3 episodes of vomiting. The patient states that the left sided rib pain started last night when he tripped and fell and hit his left chest onto the corner of a coffee table. He does not know if he hit his head or had any LOC but stated that his girlfriend told him that he "blacked out ". He admits that the left side rib pain is worse with deep inspiration and coughing and improves with laying still. The patient admits he smokes and that he drinks daily approximately six 24 oz of beer a day. He stated that his last drink was this morning. The patient admits nausea but denies any headache, vision changes, chest pain, difficulty breathing, shortness of breath, abdominal pain, diarrhea, blood in stool, difficulty urinating, increasing urinary frequency, numbness and tingling, and any witnesses. He denies any nausea and vomiting at this time. Past Med Surg Social Fam HX - Past Medical History Medical history: no medical history Psychiatric history: bipolar, depression, schizophrenia - Past Surgical History Surgical History: other - Social History Smoking Status: Current every day smoker Smokeless Tobacco Status: No Alcohol use: heavy Drug use: none, marijuana, methamphetamine - Family History Father Living Status: Still Living Mother Living Status: Still Living Hx Family Cardiac Disorders: Yes (ND) Internal Medicine - H&P: Meds Benztropine [Cogentin] 1 mg PO HS 01/22/17 [History] Gabapentin [Neurontin] 600 mg PO QID 01/22/17 [History] Lurasidone HCl [Latuda] 120 mg PO DAILY 01/22/17 [History] Trazodone HCl 350 mg PO HS 01/22/17 [History] Venlafaxine XR (24 HR) [Effexor Xr] 150 mg PO DAILY 01/22/17 [History] risperiDONE [Risperdal] 2 mg PO BID 01/22/17 [History] Cholecalciferol (D-3) [Vitamin D] 2,000 unit PO DAILY 04/09/17 [History] Iron Polysaccharide Complex [Pro Fe] 180 mg PO BID 04/09/17 [History] 3 Allergy/AdvReac Type Severity Reaction Status Date / Time propoxyphene Allergy Rash Verified 05/04/17 16:53 [From Darvocet-N] All Systems PM: A 10-system review of systems was performed and is negative for pertinent findings except as documented above in the HPI. - Constitutional Vitals: Temp Pulse Resp BP Pulse Ox 98.4 F 95 18 167/99 97 05/04/17 19:14 05/04/17 19:14 05/04/17 19:14 05/04/17 19:14 05/04/17 19:14 General appearance: Present: no acute distress Exam: The patient appears drunk and slow at responding to my questions. - Head Head exam: Present: atraumatic, normocephalic - Eye Eye exam: Present: PERRL, conjuntiva pink, sclera anicteric Pupils: Present: PERRL - Neck Neck exam general surgery: Present: supple, trachea midline. Absent: lymphadenopathy - Respiratory Respiratory exam: Present: CTAB. Absent: accessory muscle use, rales, rhonchi, wheezes - Cardiovascular Cardiovascular exam: Present: RRR, +S1, +S2. Absent: diastolic murmur, gallop, rubs, systolic murmur - GI/Abdominal GI/Abdominal exam: Present: normal bowel sounds, soft, no peritoneal signs. Absent: distended, tenderness - Extremities Exam Extremities exam: Present: warm, radial pulses palpable and symmetrical. Absent : calf tenderness, cyanotic, pedal edema - Neurological Exam Neurological exam: Present: CN II-XII intact, oriented X3, no focal deficits. Absent: motor sensory deficit, pronater drift, facial droop, speech deficit - Expanded Neurological Exam Patient oriented to: Present: person, place Speech: Present: slurred (Patient appears mildly intoxicated. He takes a while to respond to my questions but respond appropiately. ) Cranial Nerves: EOM's intact PM: Normal, gag reflex PM: Normal, tongue deviation PM: Normal Neuro motor strength exam: LUE: 5, RUE: 5, LLE: 5, RLE: 5 - Skin Skin exam: Present: dry, intact Internal Med - H&P Results - Labs CBC & Chem 7: 05/04/17 12:58 05/04/17 12:58 <Basim Menendez H - Last Filed: 05/04/17 22:04> Date of Encounter: 05/04/17 Internal Medicine - H&P: HPI History of present illness: Mr. Guzman is a 47 year old male All Systems PM: A 10-system review of systems was performed and is negative for pertinent findings except as documented above in the HPI. - Constitutional Vitals: Temp Pulse Resp BP Pulse Ox 98.4 F 95 18 167/99 97 05/04/17 19:14 05/04/17 19:14 05/04/17 19:14 05/04/17 19:14 05/04/17 19:14 Internal Med - H&P Results - Labs CBC & Chem 7: 05/04/17 12:58 05/04/17 12:58 - Attending Attestation Possible aspiration, history of cavitary lesion in the right upper lung Continue Rocephin and Flagyl due to prior resistance to Unasyn CT scan of the chest Time spent on this admission, 40 minutes. Patient will be admitted for observation but if his condition worsens we will switch to inpatient I examined this patient and my medical decision-making was reviewed with the Resident Physician. I agree with the documented findings, disposition and treatment plan as described except to the extent set forth below.
[2017-05-04] MEDS ORDERED: Naloxone 0.4 MG/ML INJ IVP PRN (21:44)
[2017-05-04] MEDS ORDERED: Ondansetron 4 MG/2 ML VIAL IVP PRN (21:44)
[2017-05-04 22:04] LABS: Bilirubin,Urine Negative (Negative); Blood,Urine Negative (Negative); Color,Urine Yellow (Yellow); Glucose,Urine (UA) Normal (Normal); Ketones,Urine Negative (Negative); Leukocyte Esterase,Urine Negative (Negative); Nitrite,Urine Negative (Negative); Protein,Urine Trace mg/dL (Neg-Trace); Specific Gravity,Urine 1.017 (1.010-1.025); Urobilinogen,Urine Normal (Normal)
[2017-05-04 22:05] LABS: Clarity,Urine Clear (Clear)
[2017-05-04] MEDS: Vitamin B Complex/Vit C/Vit E 1 EACH TABLET PO SCH (22:31)
[2017-05-04] MEDS: Thiamine (B-1) 100 MG TABLET PO SCH (22:31)
[2017-05-04] MEDS: Folic Acid 1 MG TABLET PO SCH (22:31)
[2017-05-04] MEDS: cefTRIAXone 1,000 MG in Water for inj. (sterile) 20 ML 10 ML IVPB SCH (22:31)
[2017-05-04] MEDS: MetroNIDAZOLE 500 MG/100 ML 500 MG/100 ML BAG IVPB SCH (22:32)
[2017-05-04] MEDS: Nicotine 21 MG PATCH.TD24 TD SCH (22:33)
[2017-05-04] MEDS: *HR* Morphine 2 MG/ML SYRINGE IVP PRN (22:38)
[2017-05-05] MEDS: *HR* Morphine 2 MG/ML SYRINGE IVP PRN ×2 (03:44→10:49)
[2017-05-05] MEDS ORDERED: *HR* Morphine 2 MG/ML SYRINGE IVP ONE (04:39)
[2017-05-05] MEDS: MetroNIDAZOLE 500 MG/100 ML 500 MG/100 ML BAG IVPB SCH ×3 (05:45→21:26)
[2017-05-05 05:53] LABS: Basophils % 0.5 %; Eosinophils # 0.1 K/mcL (0.0-0.6); Eosinophils % 1.1 %; Immature Granulocytes % 0.3 % (0-4); Lymphocytes % 16.6 %; Mean Corpuscular HGB Conc 29.1 g/dL (31.6-35.5); Mean Corpuscular Hemoglobin 21.7 pg (28.0-33.3); Mean Corpuscular Volume 74.3 fL (83.0-100.0); Mean Platelet Volume 9.7 fL (9.4-12.4); Monocytes # 0.8 K/mcL (0.0-1.3); Monocytes % 12.7 %; Platelet Count 171 K/mcL (140-400); Red Blood Count 4.71 M/mcL (4.19-5.50); Red Cell Distribution Width 23.5 % (11.5-14.5); Segmented Neutrophils % 68.8 %
[2017-05-05 06:08] LABS: BUN/Creatinine Ratio 6 (6-26); Blood Urea Nitrogen 4 mg/dL (6-20); Calcium 8.2 mg/dL (8.6-10.3); Carbon Dioxide 26 mEq/L (23-29); Chloride 104 mEq/L (98-107); Glucose 89 mg/dL (70-105); Osmolality,Calculated 276 (280-300); Potassium 3.5 mEq/L (3.5-5.1); Sodium 135 mEq/L (136-145); eGFR For African Americans > 60 (> 60); eGFR For Non-African Americans > 60 (> 60)
[2017-05-05 06:24] LABS: Neutrophils # 4.3 K/mcL (1.6-8.9)
[2017-05-05 06:25] LABS: Hemoglobin 10.2 g/dL (12.9-16.9)
[2017-05-05 06:35] LABS: Anisocytosis 3+ (Not Present); Microcytosis Present (Not Present); Platelet Estimate Normal (Normal)
[2017-05-05] MEDS: Vitamin B Complex/Vit C/Vit E 1 EACH TABLET PO SCH (10:11)
[2017-05-05] MEDS: Folic Acid 1 MG TABLET PO SCH (10:12)
[2017-05-05] MEDS: Thiamine (B-1) 100 MG TABLET PO SCH (10:12)
[2017-05-05] MEDS: Nicotine 21 MG PATCH.TD24 TD SCH (10:12)
[2017-05-05] MEDS: Venlafaxine XR (24 HR) 150 MG CAP.ER.24H PO SCH (10:12)
[2017-05-05] MEDS: Gabapentin 300 MG CAPSULE PO SCH ×4 (10:12→21:22)
[2017-05-05] MEDS: risperiDONE 1 MG TABLET PO SCH ×2 (10:12→21:22)
--- NOTE | 2017-05-05 11:05 | General Surgery Progress Note ---
<Gaby Montalvo - Last Filed: 05/05/17 17:08> Date of Encounter: 05/05/17 Time of Encounter: 09:30 - Assessment and Plan (1) Left pulmonary contusion Status: Acute CT chest was negative for pneumothorax, however there appears to be left sided pulmonary contusion. Patient is saturating 95% on room air, no respiratory distress, no tachypnea; no tachycardia. Plan: Encourage deep breathing and IS use (goal 10x/hr) Pain control as managed by medicine team to blunt pain on respiration and encourage deeper inspiration Will follow from a distance, please call with any questions or concerns Qualifiers: Encounter type: initial encounter Qualified Code(s): S27.321A - Contusion of lung, unilateral, initial encounter (2) Pneumothorax Status: Acute Trace left-sided pneumothorax seen on CT abd/pelvis yesterday appears to have resolved. CT chest was negative for pneumothorax, however there appears to be left sided pulmonary contusion. Patient is saturating 95% on room air, no respiratory distress, no tachypnea; no tachycardia Plan: Pneumothorax resolved Lt sided pulmonary contusion; encourage deep breathing and IS use (goal 10x/hr) Pain mgmt per medicine team Will follow from a distance, please call with any questions or concerns Qualifiers: Pneumothorax type: traumatic Encounter type: initial encounter Qualified Code(s): S27.0XXA - Traumatic pneumothorax, initial encounter (3) Rib fracture Status: Acute Minimally displaced fractures of left-sided ribs 7-[address] abdomen/ pelvis. Fractures are likely etiology for small pneumothorax (now resolved, see above) seen on CT abd/pelvis Plan: Pain control per primary team Qualifiers: Encounter type: initial encounter Rib fracture type: multiple ribs Fracture type: closed Laterality: left Qualified Code(s): S22.42XA - Multiple fractures of ribs, left side, initial encounter for closed fracture (4) Chronic alcohol abuse Status: Acute Hx of EtoH abuse. Plan: Management per medicine team Subjective Patient reports: no new complaints, still having pain, shortness of breath (due to pain) Objective Vital Signs - Last 8 Hours Temp Pulse Pulse Pulse Pulse Resp BP 05/05/17 07:39 98.8 F 77 16 146/91 05/05/17 03:56 97.6 F 101 101 88 93 19 154/95 BP BP BP Pulse Ox 05/05/17 07:39 95 05/05/17 03:56 154/95 154/90 144/90 92 Intake and Output 05/04/17 05/05/17 05/05/17 23:59 07:59 15:59 Intake Total 100 / 1100 480 / 480 Output Total 350 / 350 400 / 400 300 / 300 Balance -250 / 750 -400 / -400 180 / 180 Intake: IV Fluids 100 / 100 Flagyl Premix 500 MG/100 ML 500 100 / 100 mg In 100 ml @ 100 mls/hr IVPB Q8H [facility] Rx#:[id number] Oral 480 / 480 Output: Urine 350 / 350 400 / 400 300 / 300 Other: Meal Breakfast Percent of Meal Consumed 75% Weight 85.6 kg Patient Weight 05/05/17 23:59 Weight 85.6 kg - General physical appearance no distress - Eyes normal ocular movement - Respiratory normal respiratory effort, other (sonorous rhonchi, no respiratory distress) - Cardiovascular Cardiovascular exam: Present: RRR Addtional Comments: hemodynamically stable - Neurologic CN 2-12 grossly intact, other (no focal deficits) - Psychiatric oriented to time, oriented to person, oriented to place, speech is normal, memory intact - Labs 05/05/17 04:46 05/05/17 04:46 Diabetes panel 05/05/17 Range/Units 04:46 Sodium 135 L (136-145) mEq/L Potassium 3.5 (3.5-5.1) mEq/L Chloride 104 (98-107) mEq/L Carbon Dioxide 26 (23-29) mEq/L BUN 4 L (6-20) mg/dL Creatinine 0.62 L (0.70-1.30) mg/dL Glucose 89 (70-105) mg/dL Calcium 8.2 L (8.6-10.3) mg/dL Calcium panel 05/05/17 Range/Units 04:46 Calcium 8.2 L (8.6-10.3) mg/dL Pituitary panel 05/05/17 Range/Units 04:46 Sodium 135 L (136-145) mEq/L Potassium 3.5 (3.5-5.1) mEq/L Chloride 104 (98-107) mEq/L Carbon Dioxide 26 (23-29) mEq/L BUN 4 L (6-20) mg/dL Creatinine 0.62 L (0.70-1.30) mg/dL Glucose 89 (70-105) mg/dL Calcium 8.2 L (8.6-10.3) mg/dL Adrenal panel 05/05/17 Range/Units 04:46 Sodium 135 L (136-145) mEq/L Potassium 3.5 (3.5-5.1) mEq/L Chloride 104 (98-107) mEq/L Carbon Dioxide 26 (23-29) mEq/L BUN 4 L (6-20) mg/dL Creatinine 0.62 L (0.70-1.30) mg/dL Glucose 89 (70-105) mg/dL Calcium 8.2 L (8.6-10.3) mg/dL - Imaging Chest x-ray: report reviewed, image reviewed CT scan - chest: report reviewed, image reviewed Consult Discharge Plan - Plan Instructions: Traumatic Pneumothorax (GEN), Rib Fracture (DC), Aspiration Pneumonia, Mounter (GEN) Referrals: Estela Hendrickson DO [Primary Care Provider] - 05/12/17 9:30 am Nuno Gutierrez MD [Partnered Physician] - 05/17/17 1:30 pm Prescriptions: levoFLOXacin [Levaquin] 500 mg PO DAILY #5 tablet <Samuel Ayala - Last Filed: 05/08/17 11:16> Date of Encounter: 05/05/17 Objective - Labs 05/05/17 04:46 05/05/17 04:46 - Attending Attestation I examined this patient and my medical decision-making was reviewed with the Resident Physician. I agree with the documented findings, disposition and treatment plan as described except to the extent set forth below. The patient is seen and evaluated with the resident. I personally reviewed the CAT scan images and examined the patient. The patient's findings are consistent with splinting and pulmonary contusion as well as fractures. There is no evidence of pneumothorax. Recommend supportive therapy. Samuel Ayala MD FACS
--- NOTE | 2017-05-05 16:53 | Electrocardiograph Report ---
[address] [place], [place] [address] Test Date: 2017-05-04 Pat Name: Jersey Guzman Department: 104 Room: 3B39 Gender: M Licensed Vocational Nurse: : 1970 Requested By: Natalie Carlson Order Number: [id number] Reading MD: Venessa Quinn Measurements Intervals [place] Rate: 138 P: 58 NV: 139 QRS: 42 QRSD: 75 T: 46 QT: 288 QTc: 369 Interpretive Statements SINUS TACHYCARDIA ABNORMAL RHYTHM ECG Electronically Signed On 05-05-2017 16:51:35 EST by Venessa Quinn
--- NOTE | 2017-05-05 18:21 | Internal Med Progress Note ---
Date of Encounter: 05/05/17 Time of Encounter: 11:00 - Assessment and plan (1) Pneumothorax Current Visit: Yes Status: Acute Assessment and plan: -Small stable pneumothorax per imaging -Conservative management per surgery Qualifiers: Pneumothorax type: traumatic Encounter type: initial encounter Qualified Code(s): S27.0XXA - Traumatic pneumothorax, initial encounter (2) Rib fracture Current Visit: Yes Status: Acute Assessment and plan: -Secondary to fall due to intoxication with marijuana and alcohol -Supported care Qualifiers: Encounter type: initial encounter Rib fracture type: multiple ribs Fracture type: closed Laterality: left Qualified Code(s): S22.42XA - Multiple fractures of ribs, left side, initial encounter for closed fracture (3) Aspiration pneumonia Current Visit: Yes Status: Acute Assessment and plan: -Concerns for aspiration pneumonia so we will continue IV ceftriaxone and Flagyl. Qualifiers: Lung location: unspecified part of lung Qualified Code(s): J69.0 - Pneumonitis due to inhalation of food and vomit (4) Chronic alcohol abuse Current Visit: Yes Status: Acute Assessment and plan: -[facility] protocol - Subjective Interval history: Patient overmedicated this morning with pain medications as he appears somnolent Small pneumothorax stable on imaging and conservative management per surgery - Constitutional Vitals: Temp Pulse Resp BP Pulse Ox 98.5 F 102 18 141/84 92 05/05/17 15:25 05/05/17 15:25 05/05/17 15:25 05/05/17 15:25 05/05/17 15:25 General appearance: Present: no acute distress - Respiratory Respiratory exam: Present: CTAB. Absent: accessory muscle use, rales, rhonchi, wheezes - Cardiovascular Cardiovascular exam: Present: RRR, +S1, +S2. Absent: diastolic murmur, gallop, rubs, systolic murmur Internal Medicine: Result - Labs CBC & Chem 7: 05/05/17 04:46 05/05/17 04:46 Labs: Short CBC 05/05/17 Range/Units 04:46 WBC 6.2 (4.3-11.1) K/mcL Hgb 10.2 L D (12.9-16.9) g/dL Hct 35.0 L (37.5-50.1) % Plt Count 171 (140-400) K/mcL Neutrophils # 4.3 (1.6-8.9) K/mcL BMP 05/05/17 04:46 Sodium 135 L Potassium 3.5 Chloride 104 Carbon Dioxide 26 BUN 4 L Creatinine 0.62 L Glucose 89 Calcium 8.2 L Urine 05/04/17 Range/Units 18:50 Urine Color Yellow (Yellow) Urine Clarity Clear (Clear) Urine pH 6.0 (5.0-8.0) pH Units Ur Specific [place] 1.017 (1.010-1.025) Urine Protein Trace (Neg-Trace) mg/dL Urine Glucose (UA) Normal (Normal) mg/dL - Impressions Impressions Chest CT 05/04/17 21:26 IMPRESSION: Multiple new rib fractures on the left. No pneumothorax Basilar airspace disease bilaterally, slightly greater on the left with a small left effusion. Atelectasis is favored over pneumonia Improving irregular opacity in the right apex with associated calcification. Small nodular density in the posterior aspect of the right upper lung zone again noted. This appears minimally larger however may be due to differences in slice selection. Follow-up is recommended. D/ / Osmar Cabral / Osmar Cabral Interpreting Provider: Osmar Cabral Head CT 05/04/17 21:26 IMPRESSION: No acute intracranial abnormality. D/ / Fede Saldivar / Fede Saldivar Interpreting Provider: Fede Saldivar Chest X-Ray 05/05/17 09:45 IMPRESSION: Persistent small left pleural effusion with adjacent atelectasis. No pneumothorax. D/ / 05/05/2017 10:51:10 Gaby Mariee MD / [facility] Interpreting Provider: Gaby Mariee MD Consult Discharge Plan - Plan Referrals: Estela Hnedrickson DO [Primary Care Provider] - Nuno Gutierrez MD [Partnered Physician] - 05/17/17 1:30 pm
[2017-05-05] MEDS ORDERED: traZODone 50 MG TABLET PO SCH (21:00)
[2017-05-05] MEDS: cefTRIAXone 1,000 MG in Water for inj. (sterile) 20 ML 10 ML IVPB SCH (21:23)
[2017-05-06] MEDS: *HR* Morphine 2 MG/ML SYRINGE IVP PRN (03:28)
[2017-05-06] MEDS: MetroNIDAZOLE 500 MG/100 ML 500 MG/100 ML BAG IVPB SCH ×2 (06:13→13:06)
[2017-05-06] MEDS: Venlafaxine XR (24 HR) 150 MG CAP.ER.24H PO SCH (09:32)
[2017-05-06] MEDS: risperiDONE 1 MG TABLET PO SCH (09:32)
[2017-05-06] MEDS: Folic Acid 1 MG TABLET PO SCH (09:32)
[2017-05-06] MEDS: Vitamin B Complex/Vit C/Vit E 1 EACH TABLET PO SCH (09:32)
[2017-05-06] MEDS: Thiamine (B-1) 100 MG TABLET PO SCH (09:32)
[2017-05-06] MEDS: Gabapentin 300 MG CAPSULE PO SCH ×2 (09:32→13:06)
[2017-05-06] MEDS: Nicotine 21 MG PATCH.TD24 TD SCH (09:33)
[2017-05-06] MEDS ORDERED: Ketorolac 30 MG/ML VIAL IVP PRN (09:53)
[2017-05-06 12:00] VITALS: BP 150/96
--- NOTE | 2017-05-06 15:04 | Discharge Summary ---
Date of Encounter: 05/06/17 Time of Encounter: 11:00 - Discharge Diagnosis (1) Pneumothorax Priority: Primary Status: Acute Qualifiers: Pneumothorax type: traumatic Encounter type: initial encounter Qualified Code(s): S27.0XXA - Traumatic pneumothorax, initial encounter (2) Rib fracture Priority: Primary Status: Acute Qualifiers: Encounter type: initial encounter Rib fracture type: multiple ribs Fracture type: closed Laterality: left Qualified Code(s): S22.42XA - Multiple fractures of ribs, left side, initial encounter for closed fracture (3) Aspiration pneumonia Priority: Secondary Status: Acute Qualifiers: Lung location: unspecified part of lung Qualified Code(s): J69.0 - Pneumonitis due to inhalation of food and vomit (4) Chronic alcohol abuse Priority: Secondary Status: Acute - Discharge Medications Prescriptions: levoFLOXacin [Levaquin] 500 mg PO DAILY #5 tablet Home Medications: Benztropine [Cogentin] 1 mg PO HS 01/22/17 [History] Gabapentin [Neurontin] 600 mg PO QID 01/22/17 [History] Lurasidone HCl [Latuda] 120 mg PO DAILY 01/22/17 [History] Trazodone HCl 350 mg PO HS 01/22/17 [History] Venlafaxine XR (24 HR) [Effexor Xr] 150 mg PO DAILY 01/22/17 [History] risperiDONE [Risperdal] 2 mg PO BID 01/22/17 [History] Cholecalciferol (D-3) [Vitamin D] 2,000 unit PO DAILY 04/09/17 [History] Iron Polysaccharide Complex [Pro Fe] 180 mg PO BID 04/09/17 [History] levoFLOXacin [Levaquin] 500 mg PO DAILY #5 tablet 05/06/17 [Rx] Allergies/Adverse Reactions: 3 Allergy/AdvReac Type Severity Reaction Status Date / Time propoxyphene Allergy Rash Verified 05/04/17 16:53 [From Anai] Procedures/tests Complete & Pending: Procedures Performed prior 72 hours Category Date Time Status CT chest w/o contrast [CT chest wo con] [CT] Stat Cat Scan 05/04/17 21:[address] head/brain wo con [CT] Stat Cat Scan 05/04/17 21:26 Completed ECG 12 lead ECG [ECG] Routine Y 05/04/17 12:26 Completed Date of admission: 05/04/17 17:08 Primary care physician: Mindy Youngblood - Patient Status Disposition: Home, Self-Care Condition: Fair - Discharge Instructions Follow Up With: Estela Hendrickson DO [Primary Care Provider] - Nuno Gutierrez MD [Partnered Physician] - 05/17/17 1:30 pm Hospital course: Patient is a 47-year-old male with past medical history significant for chronic alcohol abuse & insomnia who presented to the ER on 05/04/17 status post fall complaining of left-sided rib pain. Patient stated that the left sided rib pain started the night prior to admission when he tripped and fell and hit his left chest onto the corner of a coffee table. He does not know if he hit his head or had any LOC but stated that his girlfriend told him that he "blacked out". He admits that the left side rib pain is worse with deep inspiration and coughing and improves with laying still. The patient admits he smokes and that he drinks daily approximately six 24 oz of beer a day. He stated that his last drink was this morning. In the ER patient was found to have rib fractures on imaging and urine tox was positive for marijuana and alcohol. He was admitted to the medical surgical floor for continued management. During patients hospital stay, surgery was consulted with recommendations of medical management for small and stable left pneumothorax secondary to fractured ribs. Patient was also treated with IV antibiotics for suspected aspiration pneumonia. Patient will be discharged to complete a 5 day course of Levaquin and follow up with primary care provider. - Time Spent with Patient Total time spent providing and/or coordinating discharge services: Less than 30 minutes - Constitutional Vitals: Temp Pulse Resp BP Pulse Ox 97.9 F 91 17 150/96 91 05/06/17 11:59 05/06/17 11:59 05/06/17 11:59 05/06/17 11:59 05/06/17 11:59 General appearance: Present: no acute distress
== END 2017-05-06 15:58 | disposition home or self-care (01) ==
LOC: EMEROO 12:04 → 3BNU 12:04 → SUATTDRO 17:08 → 3BNU 17:53
PROVIDERS: ADMIT Internal Medicine; ATTEND Hospitalist